=== PATIENT | male | born 1945 | race Caucasian/White ===

== ENCOUNTER → 2016-06-23 09:41 | Outpatient (CLI) | payer MEDICARE, OTHER ==
[2015-04-14 11:44] VITALS: BMI 28.4
[~2016-06-23 09:41] MED LIST: ACETAMINOPHEN325 MG PO; ASPIRIN 81 MG E81 MG PO; BETAPACE 80 MG80 MG PO; BRILINTA90 MG PO; CARAFATE1 G/10 ML PO; CIPRO500 MG PO; FLAGYL500 MG PO; LOSARTAN POTASS25 MG PO; MACROBID100 MG PO; NORCO 7.5-3251 EACH PO; NORMODYNE / TR300 MG PO; NORVASC10 MG PO; PLAVIX75 MG PO; PROBIOTIC1 EAC1 PO; PROTONIX40 MG PO; XARELTO20 MG PO
[2016-06-23 10:47] LABS: CREATININE - SERUM 2.1 mg/dL (0.6-1.3)
== END | disposition home or self-care (01) ==
LOC: D.CT 09:41
PROVIDERS: Internal Medicine Gastroenterology
DX: R10.9 Unspecified abdominal pain (principal)

== ENCOUNTER 2016-06-26 07:03 | Outpatient (CLI) | payer MEDICARE, OTHER ==
[~2016-06-26] VITALS: Ht 185.4 cm; Wt 93.6 kg
[2016-06-26 01:49] VITALS: BP 165/82
[~2016-06-26 07:03] MED LIST changes: -FLAGYL500 MG PO; -LOSARTAN POTASS25 MG PO; -MACROBID100 MG PO; -NORMODYNE / TR300 MG PO; -PROBIOTIC1 EAC1 PO
--- NOTE | 2016-06-26 07:30 | NUR ---
RECIEVED PT DURING WALKING ROUNDS. PT RESTING IN BED WITH NO COMPLAINTS OF PAIN AT THIS TIME. PT REQUESTED TO BE SUCTIONED AT THIS TIME. SPOKE TO PT ABOUT THE NEED TO NOT IRRITATE HER TRACH ANYMORE AND THAT WE WOULD SUCTION WHEN NECESSARY. ASSESSMENT DONE PER FLOWSHEET. BED IN LOW POSITION AND CALL LIGHT WITHIN REACH. WILL CONTINUE TO MONITOR.
[2016-06-26 07:34] LABS: BASOPHILS 0.6 % (0.0-2.0); EOSINOPHILS 2.9 % (0-7); HEMATOCRIT 46.2 % (42.0-54.0); HEMOGLOBIN 14.8 g/dL (13.5-17.5); IMMATURE GRANULOCYTES 0.1 % (0-5); MCH 28.2 pg (26.0-34.0); MEAN PLATELET VOLUME 10.2 fL (7.4-10.4); MONOCYTES 6.5 % (2-11); NEUTROPHILS 72.9 % (40-80); PLATELET COUNT 232 10x3/uL (130-400); RBC 5.25 10x6/uL (4.20-6.10); RDW 14.1 % (11.5-14.5); WBC 8.6 10x3/uL (4.8-10.8)
[2016-06-26 08:03] LABS: ALBUMIN 3.6 g/dL (3.4-5.0); ANION GAP 13.7 mmol/L (8-16); BILIRUBIN - TOTAL 0.3 mg/dL (0.2-1.3); CALCIUM 9.5 mg/dL (8.5-10.1); CARBON DIOXIDE 24.6 mmol/L (21.0-32.0); POTASSIUM - SERUM 5.3 mmol/L (3.5-5.1); PROTEIN - SERUM 7.1 g/dL (6.4-8.2)
[2016-06-26 08:25] LABS: APPEARANCE CLEAR (CLEAR); COLOR ORANGE (YELLOW)
[2016-06-26 08:26] LABS: WHITE CELLS - URINE 0-5 /hpf (0-5)
[2016-06-26 08:27] LABS: RED CELLS - URINE OCC /hpf (0-5)
[2016-06-26 08:28] LABS: BACTERIA FEW /hpf (NONE SEEN)
--- NOTE | 2016-06-26 09:50 | NUR ---
ASSISTED PT TO THE BEDSIDE COMMODE AT THIS TIME. AFTER FINISHING I HELPED PT INTO THE CHAIR. PT TOLERATED WELL. BED IN LOW POSITION AND CALL LIGHT WITHIN REACH. WILL CONTINUE TO [facility].
--- NOTE | 2016-06-26 12:25 | NUR ---
Patient Name: GUS CARRANZA Admission Status: ER Accout number: [id number] Admission Date: 06-26-2016 : 1945 Admission Diagnosis: Diverticulitis w/ failed OP Attending: SANG Current LOS: 1 Anticipated DC Date: 06-29-2016 Planned Disposition: Home Independently with Primary Insurance: MEDICARE A & B Discharge Planning Comments: Cm met with patient to complete initial discharge planning assessment. Patient gave consent to complete assessment. Patient reports he lives home with his independently. He does not use assistive devices for ambulation nor does he use community resources. Patient plans to return to home at discharge and denied discharge needs. CM will continue to follow and assist with dc plan/needs. Gold Wheel Blocker And Polisher: Suzie Ochoa RN, [facility] [place] [phone] Is the patient Alert and Oriented? Yes * How many steps to enter\exit or inside your home? Three * PCP Dr. Nguyen * Pharmacy [facility] [address] * Preadmission Environment Home with Family * ADLs Independent * Equipment None * List name and contact numbers for known caregivers / representatives who currently or will assist patient after discharge: Chloe Carranza - [phone] * Community resources currently utilized None * Additional services required to return to the preadmission environment? No * Can the patient safely return to the preadmission environment? Yes * Has this patient been hospitalized within the prior 30 days at any hospital? No
[2016-06-26] MEDS ORDERED: FLAGYL500 MG PO (12:28)
[2016-06-26] MEDS ORDERED: MACROBID100 MG PO (12:30)
[2016-06-26] MEDS ORDERED: NORMODYNE / TR300 MG PO (12:30)
[2016-06-26] MEDS ORDERED: CIPRO500 MG PO (12:31)
[2016-06-26] MEDS ORDERED: LOSARTAN POTASS25 MG PO (12:32)
[2016-06-26] MEDS ORDERED: PROBIOTIC1 EAC1 PO (12:34)
--- NOTE | 2016-06-26 12:45 | NUR ---
RECIEVED PT TO FLOOR FROM ER AT THIS TIME. REPORT RECIEVED FROM SARAH HUTCHISON. LEVAQUIN AND FLUIDS HANGING AT THIS TIME. HISTORY OBTAINED. PT RESTING IN BED WITH SPOUSE AT BEDSIDE. ORIENTED TO ROOM. BED IN LOW POSITION AND CALL LIGHT WITHIN REACH. WILL CONTINUE TO MONITOR.
[2016-06-26 13:10] VITALS: BP 162/79; Ht 185.4 cm; Wt 93.6 kg
[2016-06-26 19:05] VITALS: BP 174/83
--- NOTE | 2016-06-26 19:45 | NUR ---
PT AMBULATING TO BATHROOM,DENIES ANY NEEDS AT THIS TIME. FAMILY AT BEDSIDE. CALL LIGHT IN REACH, ASSESSMENT PER FLOWSHEET.
[2016-06-26 20:00] VITALS: BP 190/89
--- NOTE | 2016-06-26 22:58 | NUR ---
PT RESTING QUIETLY, BREATHING EVEN AND UNLABORED ON ROOM AIR, NO S/S OF DISTRESS NOTED. BED IN LOWEST POSITION, CALL LIGHT IN REACH. WILL CONTINUE TO MONITOR.
--- NOTE | 2016-06-27 03:23 | NUR ---
PT RESTING QUIETLY, NO S/S OF DISTRESS NOTED, BED IN LOWEST POSITION, RETAIL ADVERTISING ACCOUNT EXECUTIVE RESUME CARE
[2016-06-27 05:27] LABS: BASOPHILS 0.4 % (0.0-2.0); EOSINOPHILS 2.2 % (0-7); HEMATOCRIT 42.4 % (42.0-54.0); HEMOGLOBIN 13.5 g/dL (13.5-17.5); IMMATURE GRANULOCYTES 0.3 % (0-5); LYMPHOCYTES 23.6 % (15-50); MCH 27.9 pg (26.0-34.0); MCHC 31.8 g/dL (31.0-37.0); MCV 87.6 fL (80.0-100.0); MEAN PLATELET VOLUME 10.2 fL (7.4-10.4); MONOCYTES 7.8 % (2-11); NEUTROPHILS 65.7 % (40-80); PLATELET COUNT 219 10x3/uL (130-400); RBC 4.84 10x6/uL (4.20-6.10); RDW 14.2 % (11.5-14.5); WBC 7.3 10x3/uL (4.8-10.8)
[2016-06-27 06:14] LABS: ANION GAP 13.1 mmol/L (8-16); CALCIUM 8.8 mg/dL (8.5-10.1); CARBON DIOXIDE 23.4 mmol/L (21.0-32.0); CREATININE - SERUM 1.7 mg/dL (0.6-1.3)
[2016-06-27 06:15] LABS: POTASSIUM - SERUM 4.5 mmol/L (3.5-5.1)
--- NOTE | 2016-06-27 07:20 | NUR ---
SLEEPING AT THIS TIME. RESPIRATIONS EVEN AND NON LABORED. CALL LIGHT IN REACH, WILL CONTINUE WITH PLAN OF CARE. SRX2 WITH BED IN LOWEST POSITION AND WHEELS LOCKED.
[2016-06-27 08:14] VITALS: BP 158/74
--- NOTE | 2016-06-27 09:10 | NUR ---
ASSESSMENT PERFORMED PER FLOWSHEET. PT'S ADMINISTERED PT'S HOME BP MEDICATION. EXPLAINED THAT ALL MEDICATIONS SHOULD BE REVIEWED AND CONTINUED BY PHYSICIAN. PT AND HIS SPOUSE VERBALIZE UNDERSTANDING. DENIES NEEDS AT PRESENT TIME. CALL LIGHT IN REACH, WILL CONTINUE WITH PLAN OF CARE.
--- NOTE | 2016-06-27 12:15 | NUR ---
DISCHARGE INSTRUCTIONS REVIEWED WITH PT AND IV TO LEFT AC D/C WITH CATH TIP INTACT. DENIES QUESTIONS OR CONCERNS. WILL DISCHARGE HOME WITH HIS .
[2016-06-27 12:31] VITALS: BP 186/87
== END 2016-06-27 13:00 | disposition home or self-care (01) ==
LOC: D.ER 07:03 → D.OPS 07:03 → EDSTATUS 11:33 → D.MS 11:34 → D.ER 11:37 → D.MS 11:37 → D.OPS 06-27 13:00 → D.MS 06-27 13:00
PROVIDERS: Emergency Medicine
DX: K57.92 Diverticulitis of intestine, part unspecified, without perforation or abscess without bleeding (principal); N28.9 Disorder of kidney and ureter, unspecified; E87.5 Hyperkalemia; I48.91 Unspecified atrial fibrillation; I10 Essential (primary) hypertension; I25.10 Atherosclerotic heart disease of native coronary artery without angina pectoris

== ENCOUNTER 2016-07-12 07:15 | Day surgery (SDC) | payer MEDICARE, OTHER ==
[~2016-07-12] VITALS: Ht 185.4 cm; Wt 91.8 kg
[~2016-07-12 07:15] MED LIST changes: +FLAGYL500 MG PO; +LOSARTAN POTASS25 MG PO; +MACROBID100 MG PO; +NORMODYNE / TR300 MG PO; +PROBIOTIC1 EAC1 PO
[2016-07-12 07:54] LABS: BASOPHILS 1.4 % (0.0-2.0); HEMATOCRIT 46.1 % (42.0-54.0); HEMOGLOBIN 14.8 g/dL (13.5-17.5); IMMATURE GRANULOCYTES 0.2 % (0-5); LYMPHOCYTES 26.4 % (15-50); MCH 28.1 pg (26.0-34.0); MCHC 32.1 g/dL (31.0-37.0); MCV 87.6 fL (80.0-100.0); MEAN PLATELET VOLUME 10.1 fL (7.4-10.4); MONOCYTES 8.6 % (2-11); NEUTROPHILS 59.4 % (40-80); PLATELET COUNT 221 10x3/uL (130-400); RBC 5.26 10x6/uL (4.20-6.10); RDW 14.8 % (11.5-14.5); WBC 6.3 10x3/uL (4.8-10.8)
[2016-07-12 08:02] LABS: ANION GAP 12.8 mmol/L (8-16); CALCIUM 8.9 mg/dL (8.5-10.1); CARBON DIOXIDE 24.8 mmol/L (21.0-32.0); CREATININE - SERUM 1.9 mg/dL (0.6-1.3); POTASSIUM - SERUM 4.6 mmol/L (3.5-5.1)
[2016-07-12 08:12] VITALS: BP 147/85; Ht 185.4 cm; Wt 91.8 kg
--- NOTE | 2016-07-12 10:15 | NUR ---
DISCHARGED HOME VIA WHEELCHAIR TO PRIVATE VEHICLE WITH SPOUSE
--- NOTE | 2016-07-20 12:04 | OP ---
PATIENT NAME: GUS TERAN MEDICAL RECORD: [id number] :[birth year] [facility] ADMISSION DATE: SURGEON: JENNIFER DE SANTIAGO DO DATE OF OPERATION: 07/12/2016 PROCEDURE: EGD with biopsies. INSTRUMENT: Olympus video gastroscope. MEDICATIONS: Propofol 210 mg and lidocaine 100 mg IV per anesthesia. INDICATIONS FOR PROCEDURE: History of Araujo's esophagus and heartburn. FINDINGS: Informed consent was given. The patient was made comfortable with the above medications. After reaching an adequate level of sedation by slow IV push. The patient was placed on his left side. The endoscope was then advanced under direct visualization through the mouth to the second portion of the duodenum. The upper, middle and distal thirds of the esophagus appeared normal. At the GE junction, there was evidence of Araujo esophagus from approximately 37-39 cm from the incisors. 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 Biopsies were taken of the Araujo's site and sent for histology. Scope was then advanced down to the stomach. There was evidence of a hiatal hernia involving the cardia from both the proximal esophageal side and the distal stomach side. This was a sliding hiatal hernia type. There were a few benign fundic gland polyps involving the fundus and stomach body. Scope was advanced down to the antrum and prepyloric region where the mucosa appeared normal. It was then advanced into the duodenum where there was some evidence of duodenitis consistent with erythema and congestion of the bulb into the second portion. This has been biopsied before and was normal. No Biopsies were taken of the duodenum on this examination. There were random biopsies taken with cold forceps in the stomach and biopsies with cold forceps of the Araujo's site. The scope was withdrawn from the patient. The patient tolerated the procedure well and there were no complications. ESTIMATED BLOOD LOSS: Less than 5 cc. IMPRESSIONS: 1. 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 2. Sliding hiatal hernia, medium size. 3. Benign fundic gland gastric polyps. 4. Duodenitis. PLAN AND RECOMMENDATIONS: 1. Await results of biopsy specimens. 2. Recommend continuing Protonix at 40 mg daily for now while stopping the Carafate suspension. 3. Return to the GI clinic as needed. 4. If there is no evidence of dysplasia on the biopsy results we will plan for a repeat surveillance upper endoscopy in 3 years' time regarding the Araujo's. TRANSINT:[id number] Voice Confirmation ID: [id number] DOCUMENT ID: [id number] OPERATIVE REPORT [id number] GUS TERAN NATHAN A DO at 1204 CC: [id number] DICTATION DATE: 07/12/16915 BROOD HATCHERY MANAGER: 07/12/16 1148 [facility] 07/12/[address] [address]
== END 2016-07-12 10:15 | disposition home or self-care (01) ==
LOC: D.OPS 07:15
PROVIDERS: Anesthesiology
DX: K22.70 Barrett's esophagus without dysplasia (principal); K29.50 Unspecified chronic gastritis without bleeding; K44.9 Diaphragmatic hernia without obstruction or gangrene; K31.7 Polyp of stomach and duodenum

== ENCOUNTER 2016-10-13 10:30 | Outpatient (CLI) | payer MEDICARE, OTHER ==
[~2016-10-13] VITALS: Ht 185.4 cm; Wt 94.1 kg
--- NOTE | ~2016-10-13 | HEMODYNAMI ---
PATIENT:GUS TERAN MEDICAL RECORD: [id number] : [birth year] LOCATION:D.[facility] ADMISSION DATE: 10/13/16 Generatedon:10/13/201613:16 Patient name: GUS TERAN Patient #: [id number] SSN: : 1945 Date of study: 10/13/2016 Page: Of Hemodynamic Procedure Report Patient Data Patient Demographics Procedure consent was obtained First Name: GUS Gender: Male Last Name: PARUL : 1945 Middle Initial: D Age: 71 year(s) Patient #: [id number] Race: Additional ID: [id number] Contact details Address: [address] [place] [address] lane State: [place] City: [place] Zip code: [address] Past Medical History Allergies: No known allergies Admission Admission Data Admission Date: 10/13/2016 Admission Time: 10:30 Lab Results Lab Result Date: 10/13/2016 Lab Result Time: 0:00 Biochemistry Name Units Result Min Max BUN mg/dl 28 --(----)-* 7 18 Creatinine mg/dl 1.7 --(----)-* 0.6 1.3 CBC Name Units Result Min Max Hemoglobin g/dl 14.6 --(-*--)-- 13.5 17.5 Procedure Procedure Types Cath Procedure Diagnostic Procedure [facility] w/Coronaries PCI Procedure Coronary Stent Initial Miscellaneous Procedures Moderate Sedation up to 30 minutes Procedure Description Procedure Date Procedure Date: 10/13/2016 Procedure Start Time: 12:52 Procedure End Time: 13:10 Procedure Staff Name Function Pipo Bearden MD Performing Physician Jaclyn Bishop RN Nurse Luis Carlos Gay RT Monitor Jasvir Obrien RT Scrub Procedure Data Cath Procedure Fluoroscopy Diagnostic fluoroscopy Total fluoroscopy Time: 5.1 time: 5.1 min min Diagnostic fluoroscopy Total fluoroscopy dose: dose: 1065 mGy 1065 mGy Contrast Material Contrast Material Type Amount (ml) Isovue 300 137 Entry Location Entry Primary Successful Side Size Upsize Upsize Entry Closure Lassiter ccessful Closure Location (Fr) 1 (Fr) 2 (Fr) Remarks Device Remarks Radial Right 6 Fr Mechanical artery Short Compression Diagnostic catheters Device Type Used For End Catheter Placement Terumo 5Fr Ino 110cm LV Angiography catheter Procedure Complications No complications Procedure Medications Medication Administration Route Dosage Oxygen NRB 2 l/min Heparin Flush Bag added to field 2 bags (1000units/500ml NS) Lidocaine 2% added to field 20 Radial Cocktail added to field 1 syringe (Verapomil 2mg/Nitro 400mcg/Heparin 1500units) Versed I.V. 1 mg Fentanyl I.V. 50 mcg Radial Cocktail I.A. 1 syringe (Verapomil 2mg/Nitro 400mcg/Heparin 1500units) Versed I.V. 1 mg Fentanyl I.V. 50 mcg Versed I.V. 1 mg Fentanyl I.V. 50 mcg Heparin Bolus I.V. 9500 units Versed I.V. 0.5 mg Plavix P.O. 600 mg Hemodynamics Rest HGB: 14.6 (g/dl) Heart Rate: 80 (bpm) Pressure Samples Time Site Value (mmHg) Purpose Heart Use Rate(bpm) 12:55 LV 125/-7,-1 EDP 58 12:56 AO 120/71(92) Pullback 63 12:56 LV 120/-2,4 Pullback 63 Gradients Valve Time Site 1 Site 2 Mean SEP/DFP Peak To Heart Use (mmHg) (sec/min) Peak Rate (mmHg) (bpm) Aortic 12:56 LV AO 9 17 0 63 120/-2,4 120/71(92) Calculations Valve P-P Mean Valve Index Valve Source Name Gradient Area Flow (cm2) Aortic 0 9 0 9 Snapshots Pre Cath Intra NCS Post Cath Vital Signs Time Heart Resp SPO2 NIBP (mmHg) Rhythm Pain Sedation Rate (ipm) (%) Status Level (bpm) 12:39:16 66 16 98 Measuring NSR 0 (11) 10(A) , No pain 12:39:28 63 18 98 151/99(121) NSR 0 (11) 10(A) , No pain 12:44:27 62 16 99 Measuring NSR 0 (11) 10(A) , No pain 12:44:38 64 18 99 164/94(130) NSR 0 (11) 10(A) , No pain 12:48:52 61 16 98 148/96(129) NSR 0 (11) 10(A) , No pain 12:53:08 60 15 95 158/87(117) NSR 0 (11) 10(A) , No pain 12:57:28 61 16 95 130/72(95) NSR 0 (11) 9(A) , No pain 13:01:42 64 14 96 137/77(121) NSR 0 (11) 9(A) , No pain 13:05:56 58 14 98 128/82(110) NSR 0 (11) 9(A) , No pain 13:10:08 69 15 97 141/84(106) NSR 0 (11) 10(A) , No pain Medications Time Medication Route Dose Verified Delivered Reason Note s Effectiveness by by 12:38:55 Oxygen NRB 2 l/min Pipo Jaclyn Per physician Raul Bishop RN 12:39:03 Heparin Flush added 2 bags Pipo Pipo used for Bag to Raul Bearden MD procedure (1000units/500ml field NS) 12:39:11 Lidocaine 2% added 20ml Pipo Pipo used for to vial Raul Beraden MD procedure field 12:39:17 Radial Cocktail added 1 Pipo Pipo used for (Verapomil to syringe Raul Bearden MD procedure 2mg/Nitro field 400mcg/Heparin 1500units) 12:48:45 Versed I.V. 1 mg Pipo Jaclyn for sedation Raul Bishop RN 12:48:50 Fentanyl I.V. 50 mcg Pipo Jaclyn for sedation Raul Bishop RN 12:52:07 Versed I.V. 1 mg Pipo Jaclyn for sedation Raul Bishop RN 12:52:13 Fentanyl I.V. 50 mcg Pipo Jaclyn for sedation Raul Bishop RN 12:53:37 Radial Cocktail I.A. 1 Pipo Pipo for (Verapomil syringe Raul Bearden MD vasodilation 2mg/Nitro 400mcg/Heparin 1500units) 12:54:30 Versed I.V. 1 mg Pipo Jaclyn for sedation Raul Bishop RN 12:54:34 Fentanyl I.V. 50 mcg Pipo Jaclyn for sedation Raul Bishop RN 12:56:37 Versed I.V. 0.5 mg Pipo Jaclyn for sedation Raul Bishop RN 13:04:00 Heparin Bolus I.V. 9500 Pipo Jaclyn for dose units Raul Bishop RN anticoagulation verified with dr bearden 13:11:55 Plavix P.O. 600 mg Pipo Jaclyn for Raul Bishop RN antiplatelet therapy Procedure Log Time Note 12:21:05 Luis Carlos Gay RT(R) sent for patient. Start room use. 12:21:06 Time tracking: Regular hours 12:21:11 Plan of Care:Hemodynamics will remain stable., Cardiac rhythm will remain stable., Comfort level will be maintained., Respiratory function will remain adequate., Patient/ family verbilizes understanding of procedure., Procedure tolerated without complication., Recovers from procedure without complications.. 12:28:15 Patient received from Pre/Post Procedure Room to [facility] 2 Alert and oriented. Tansferred to table in Supine position. 12:28:16 Warm blankets applied, and bruce hugger turned on for patient comfort. 12:28:17 Correct patient and procedure confirmed by team. 12:28:18 Signed procedure consent form obtained from patient. 12:28:18 ECG and BP/O2 sat monitors applied to patient. 12:37:27 Vital chart was started 12:38:55 Oxygen 2 l/min NRB was administered by Jaclyn Bishop RN; Per physician; 12:39:03 Heparin Flush Bag (1000units/500ml NS) 2 bags added to field was administered by Pipo Bearden MD; used for procedure; 12:39:11 Lidocaine 2% 20ml vial added to field was administered by Pipo Bearden MD; used for procedure; 12:39:17 Radial Cocktail (Verapomil 2mg/Nitro 400mcg/Heparin 1500units) 1 syringe added to field was administered by Pipo Bearden MD; used for procedure; 12:42:12 Baseline sample Acquired. 12:42:15 Rhythm: sinus rhythm 12:42:17 Full Disclosure recording started 12:43:04 H&P Date Dictated: 10/13/2016 Within 30 days and on chart., H&P Addendum completed by physician on day of procedure. (MUST COMPLETE FOR ALL OUTPATIENTS). 12:44:53 Pre-procedure instructions explained to patient. 12:44:54 Pre-op teaching completed and patient verbalized understanding. 12:44:58 Family in patients room. 12:45:03 Patient NPO since Midnight. 12:45:08 Patient allergic to No known allergies 12:45:11 Is the patient allergic to Iodine/contrast media? No. 12:45:13 Is patient on blood thinner?No 12:45:16 ACC The patient was administered the following blood thiners within the last 24 hours: ACCAspirin 12:45:18 Patient diabetic? No. 12:45:19 ----Pre-sedation anethsthesia assessment.---- 12:45:21 Previous problem with sedation/anesthesia? No ? 12:45:23 Snore? Yes 12:45:25 Sleep apnea? Unknown 12:45:27 Deviated septum? No 12:45:28 Opens mouth fully? Yes 12:45:29 Sticks out tongue? Yes 12:45:31 Airway obstruction? No ? 12:45:34 Dentures? No ? 12:45:37 Pre procedure: right dorsailis pedis pulse 1+ Palpable, but thready & weak; easily obliterated 12:45:41 Modified Justen's test Ulnar > 7 seconds. 12:45:43 Patient pain scale 0/10 ?. 12:45:56 IV patent on arrival in left hand with 0.9% NaCl at 10ml/hr. 12:48:14 Lab Result : Creatinine 1.7 mg/dl 12:48:14 Lab Result : BUN 28 mg/dl 12:48:14 Lab Result : Hemoglobin 14.6 g/dl 12:48:16 Lab results completed and on chart. 12:48:19 Right Radial & Right Groin area was prepped with chlora-prep and draped in sterile fashion 12:48:20 Alarms reviewed by R. N. 12:48:21 Sharps counted by scrub and verified by R.N. 12:48:22 --------ALL STOP TIME OUT------ 12:48:22 Final Timeout: patient, procedure, and site verified with staff and physician. All members of the team are in agreement. 12:48:26 Right Radial & Right Groin site verified by team. 12:48:28 Physical assessment completed. ASA score P 2 - A patient with mild systemic disease as per Pipo Bearden MD. 12:48:31 Sedation plan: IV Moderate Sedation Versed, Fentanyl 12:48:37 Use device set Radial Dx 12:48:38 Acist Syringe opened to sterile field. 12:48:38 Medline Cath Pack opened to sterile field. 12:48:39 Bag Decanter opened to sterile field. 12:48:39 Terumo 6Fr Slender Glidesheath opened to sterile field. 12:48:39 St Meng 260cm J .035 wire opened to sterile field. 12:48:40 Acist Hand Control opened to sterile field. 12:48:40 Acist Manifold opened to sterile field. 12:48:41 Tegaderm 4 x 4 opened to sterile field. 12:48:41 MBrace Wrist Support opened to sterile field. 12:48:45 Versed 1 mg I.V. was administered by Jaclyn Bishop RN; for sedation; 12:48:50 Fentanyl 50 mcg I.V. was administered by Jaclyn Bishop RN; for sedation; 12:52:07 Versed 1 mg I.V. was administered by Jaclyn Bishop RN; for sedation; 12:52:13 Fentanyl 50 mcg I.V. was administered by Jaclyn Bishop RN; for sedation; 12:52:24 Procedure started. 12:52:28 Local anesthetic to right radial artery with Lidocaine 2% by Pipo Bearden MD.INITIAL ACCESS ONLY 12:52:49 A 6 Fr Short sheath was inserted into the Right Radial artery 12:53:25 A Terumo 5Fr Ino 110cm catheter was advanced over the wire and used for LV Angiography. 12:53:29 Zero performed for pressure channel P1 12:53:37 Radial Cocktail (Verapomil 2mg/Nitro 400mcg/Heparin 1500units) 1 syringe I.A. was administered by Pipo Bearden MD; for vasodilation; 12:53:57 LV angiography performed. 12:54:00 LV gram done using BEAL 12:54:01 LV hemodynamics recorded. 12:54:03 Injector settings: Ml/sec: 7, Volume: 15, 12:54:30 Versed 1 mg I.V. was administered by Jaclyn Bishop RN; for sedation; 12:54:34 Fentanyl 50 mcg I.V. was administered by Jaclyn Bishop RN; for sedation; 12:55:59 EF : 55 % 12:56:37 Versed 0.5 mg I.V. was administered by Jaclyn Bishop RN; for sedation; 12:56:44 LCA angiography performed. 12:58:38 RCA angiography performed. 13:00:22 Catheter removed. 13:02:37 Goal Zero BasixCompak Inflation Kit opened to sterile field. 13:02:37 Franco BMW [place] 2 J-tip 300cm 0.014 guide wir opened to sterile field. 13:02:37 High Pressure Extension Tubing (Raul) opened to sterile field. 13:02:38 Cordis 6FR XBLAD 3.5 guide catheter opened to sterile field. 13:02:49 ACC PCI Site: mLAD has 70% stenosis. 13:02:51 ACC Pre-intervention ELIZABETH Flow is 3. 13:02:57 6 Fr XBLAD 3.5 guide catheter was inserted over the wire 13:04:00 Heparin Bolus 9500 units I.V. was administered by Jaclyn Bishop RN; for anticoagulation; dose verified with dr bearden 13:04:57 BMW 2 J wire advanced. 13:06:39 Procedure type changed to Cath procedure, Diagnostic procedure, LHC, LHC w/Coronaries, PCI procedure, Coronary Stent Initial, Miscellaneous Procedures, Moderate Sedation up to 30 minutes 13:07:16 Inflation Number: 1 A Medtronic Integrity 3.0 X 18 stent was prepped and advanced across the Mid LAD. The stent was deployed at 16 VIVI for 0:18 (min:sec). 13:07:41 Stent catheter was removed intact over wire. 13:07:42 Wire removed. 13:07:42 Guide catheter removed. 13:08:11 Sheath removed intact; hemostasis achieved with Mechanical Compression to the Right Radial artery. 13:08:13 Procedure ended.(Physican Out) 13:08:34 Contrast amount:Isovue 300 137ml. 13:08:38 Fluoroscopy time 05.10 minutes. 13:08:43 Fluoroscopy dose: 1065 mGy 13:08:43 Flurop Dose total: 1065 13:08:44 Sharps counted by scrub and verified by R.N. 13:09:42 TR band inflated with 10cc of air. 13:09:44 Insertion/operative site no bleeding no hematoma. 13:09:50 Post right radial artery:stable 13:09:51 Post Procedure Pulses reassessed and unchanged 13:09:56 Post procedure rhythm: sinus rhythm 13:09:58 Post procedure instruction explained to patient.Patient verbalizes understanding. 13:10:18 Terumo TR Band Standard opened to sterile field. 13:10:32 Procedure and supply charges have been captured, reviewed, submitted and are correct. 13:10:37 Procedure Complication : No complications 13:10:39 Vital chart was stopped 13:10:40 See physician's report for complete and final results. 13:10:46 Report given to Pre/Post Procedure Room. 13:10:49 Patient transfered to Pre/Post Procedure Room with Stretcher. 13:10:50 Procedure ended. 13:10:50 Full Disclosure recording stopped 13:10:58 ACC-PCI Only Patient was given prescriptions, or instructed by Pipo Bearden MD to start/continue the following medications upon discharge: Plavix 13:10:59 End room use (Document Last) 13:11:55 Plavix 600 mg P.O. was administered by Jaclyn Bishop RN; for antiplatelet therapy; Intervention Summary Intervention Notes Time ActionType Lesion and Equipment Action# Pressure Duration Attributes Used 13:07:16 Place stent Mid LAD Medtronic 1 16 00:18 Integrity 3.0 X 18 stent Device Usage Item Name Manufacture Quantity Catalog Hospital Part Current Minimal Lot# / Number Charge Number Stock Stock Serial# Code Acist Acist 1 68845 530324 166029 733227 20 Syringe Medical Systems Inc Medline Cardinal 1 [id number] 650143 12169 700340 5 Cath Pack Health Bag Microtek 1 621055 84774 022273 5 DecSumpto Medical Inc. Terumo 6Fr Terumo 1 [id number] 182555 763170 941062 [address] M[address] St Meng 1 388333 531135 839136 184548 30 260cm J .035 wire Acist Hand Acist 1 56490 713017 130589 593132 5 Control Medical Systems Inc Acist Acist 1 83235 847551 386106 853833 5 Manifold Medical Systems Inc Tegaderm 4 3M 1 1626W 777069 343011 592091 5 x 4 MBrace Advanced 1 140-0250-00 166758 25566 321908 5 Wrist Vascular Support Dynamics Terumo 5Fr Terumo 1 40-3968 899489 125546 489119 5 Ino 110cm catheter Merit Merit 1 [id number] 899015 463834 689593 15 BasixCompak Medical Inflation Kit Franco BMW Franco 1 [id number] 107170 013531 022719 5 [place] 2 Vascular J-tip 300cm 0.014 guide wir High Merit 1 [id number] 247801 80186 220905 10 Pressure Medical Extension Tubing (Bearden) Cordis 6FR Cardinal 1 [id number] 594169 823974 851741 10 XBLAD 3.5 Health guide catheter Medtronic Medtronic 1 [id number] 951482 608594 8 [id number] Integrity 3.0 X 18 stent Terumo TR Terumo 1 [id number] 626834 556806 971714 40 Band Standard Signature Audit [place] Stage Time Signature Unsigned Intra-Procedure 10/13/2016 Luis Carlos Gay 1:16:45 PM RT(R) Signatures Monitor : Luis Carlos Gay RT Signature : Date : Time : [place] [id number] [facility] [place] [address]
--- NOTE | ~2016-10-13 | OP ---
PATIENT NAME: GUS TERAN MEDICAL RECORD: [id number] :45 LOCATION:D.CAT ADMISSION DATE: SURGEON: LONA ALBERT M.D. DATE OF OPERATION: 10/13/2016 REFERRING PHYSICIAN: Dr. Nguyen. PROCEDURES PERFORMED: 1. Selective coronary angiography. 2. Left heart catheterization with ventriculogram. 3. PTCA and stent placed in LAD. INDICATION: A 71-year-old gentleman with coronary artery disease presents with recurrent angina. EQUIPMENT USED: Diagnostic 5-Djiboutian Ino catheter. INTERVENTION: A 6-Djiboutian XB LAD guide, BMW guidewire, 3.0 x 18 mm Integrity stent. TECHNIQUE: A 6-Djiboutian sheath was inserted in retrograde fashion in the right radial artery. Next, selective coronary angiography was performed in standard 5-Djiboutian Ino catheter. Left heart catheterization performed using a Ino catheter as well. CORONARY ANATOMY: 1. Left main: Left main trunk is moderate in caliber. It gives rise to the LAD and circumflex. There is no obstruction. 2. LAD: This is a large caliber vessel extending to the apex. The proximal segment demonstrates an irregular 70-80% stenosis. 3. Circumflex: This vessel is moderate in caliber. The proximal vessel have been stented. The stent is widely patent. There is no evidence of restenosis. 4. Right coronary artery: This vessel is moderate in caliber and dominant. There is diffuse in-stent restenosis noted throughout the length of the stent. It does not appear to be worse than 40%. The distal vessel is of good caliber and has no obstruction. 5. Left ventricle: Left ventricle is normal in size and function. No wall motion abnormalities are seen. Its ejection fraction is 60%. DESCRIPTION OF INTERVENTION: A 100 units per kilogram of heparin was infused. A 6-Djiboutian XB LAD guide was advanced and engaged in the left main coronary artery. Next, a BMW guide wire was placed distal LAD. A 3.0 x 18 mm Integrity stent was placed across the stenosis and deployed at 16 atmospheres. Injection reveals stent to be widely patent with 0% residual stenosis. At this point, the wire and guide were removed. IMPRESSION: Successful percutaneous transluminal coronary angioplasty and stenting to the LAD with 0% residual stenosis. PLAN: We will see him back in clinic in approximately 1-2 weeks. He continues having angina. We will consider intravascular ultrasound of the right coronary artery at that point. TRANSINT:[id number] Voice Confirmation ID: [id number] DOCUMENT ID: [id number] OPERATIVE REPORT [id number] GUS TERAN TIMOTHY E M.D. CC: [id number] DICTATION DATE: 10/13/16 1314 COMMERCIAL ASSISTANT: 10/13/162020 DEP CLI 10/13/16 [facility] [address] [id number]
[2016-10-13 11:18] LABS: BASOPHILS 0.6 % (0-2); EOSINOPHILS 3.3 % (0-7); HEMATOCRIT 44.2 % (42.0-54.0); HEMOGLOBIN 14.6 g/dL (13.5-17.5); IMMATURE GRANULOCYTES 0.5 % (0-5); LYMPHOCYTES 21.8 % (15-50); MCH 28.6 pg (26.0-34.0); MCV 86.7 fL (80.0-100.0); MEAN PLATELET VOLUME 10.4 fL (7.4-10.4); MONOCYTES 8.6 % (2-11); NEUTROPHILS 65.2 % (40-80); PLATELET COUNT 232 10x3/uL (130-400); RDW 14.5 % (11.5-14.5); WBC 8.1 10x3/uL (4.8-10.8)
[2016-10-13] MEDS ORDERED: CADUET 5 MG-101 EACH PO (11:20)
[2016-10-13 11:28] VITALS: BP 157/85; Ht 185.4 cm; Wt 94.1 kg
[2016-10-13 11:37] LABS: CALCIUM 9.1 mg/dL (8.5-10.1); CARBON DIOXIDE 22.2 mmol/L (21.0-32.0); CREATININE - SERUM 1.7 mg/dL (0.6-1.3)
[2016-10-13 11:40] LABS: ANION GAP 13.8 mmol/L (8-16)
[2016-10-13] MEDS ORDERED: PLAVIX75 MG PO (13:35)
--- NOTE | 2016-10-13 13:45 | NUR ---
TR BAND TO RIGHT WRIST- CDI, NO BLEEDING AT SITE
--- NOTE | 2016-10-13 15:15 | NUR ---
RIGHT WRIST WITH TR BAND INTACT, NO BLEEDING
--- NOTE | 2016-10-13 17:20 | NUR ---
IV D'C WITH CATH TIP INTACT, WRITTEN AND VERBAL INSTRUCTIONS GIVEN TO PT AND . VERBAL UNDERSTANDING NOTED. D'C HOME WITH
== END 2016-10-13 17:35 | disposition home or self-care (01) ==
LOC: D.CATH 10:30
PROVIDERS: Internal Medicine Cardiovascular Disease
DX: I25.119 Atherosclerotic heart disease of native coronary artery with unspecified angina pectoris (principal); Z01.812 Encounter for preprocedural laboratory examination

== ENCOUNTER 2016-11-09 10:29 | Outpatient (CLI) | payer MEDICARE, OTHER ==
[~2016-11-09] VITALS: Ht 182.9 cm; Wt 93.6 kg
[2016-11-09] VITALS: BP 144/84
--- NOTE | ~2016-11-09 | HEMODYNAMI ---
PATIENT:GUS TERAN MEDICAL RECORD: [id number] : 45 LOCATION:D[facility]AYAN ADMISSION DATE: 11/09/16 Generatedon:11/09/201614:00 Patient name: GUS TERAN Patient #: [id number] SSN: : 1945 Date of study: 11/09/2016 Page: Of Hemodynamic Procedure Report Patient Data Patient Demographics Procedure consent was obtained First Name: GUS Gender: Male Last Name: PARUL : 1945 Middle Initial: D Age: 71 year(s) Patient #: [id number] Race: Additional ID: [id number] Contact details Address: [address] [place] [address] lane State: [place] City: [place] Zip code: [address] Past Medical History Allergies: No known allergies Admission Admission Data Admission Date: 11/09/2016 Admission Time: 10:29 Procedure Procedure Types Cath Procedure Diagnostic Procedure PPM/ICD PPM Dual Implant Miscellaneous Procedures Moderate Sedation up to 45 minutes Procedure Description Procedure Date Procedure Date: 11/09/2016 Procedure Start Time: 13:06 Procedure Staff Name Function Hardeep Arriaga MD Performing Physician Luis Carlos Gay RT Scrub Bran Kemp RT Monitor Jaclyn Bishop RN Nurse Alphonso Potts MD Performing Physician Procedure Data Cath Procedure Fluoroscopy Diagnostic fluoroscopy Total fluoroscopy Time: 2.4 time: 2.4 min min Diagnostic fluoroscopy Total fluoroscopy dose: 82 dose: 82 mGy mGy Procedure Medications Medication Administration Route Dosage Ancef (1Gm/50ml NS) 1 g Ancef Irrigation Topical 1 g (1gm/500ml NS) Lidocaine 1% with added to field 20 ml Epi Bupivacaine 0.5% 10 ml Versed I.V. 1 mg Fentanyl I.V. 50 mcg Versed I.V. 0.5 mg Fentanyl I.V. 50 mcg Versed I.V. 0.5 mg Hemodynamics Rest Heart Rate: 64 (bpm) Snapshots Pre Cath Intra NCS Post Cath Vital Signs Time Heart Resp SPO2 NIBP (mmHg) Rhythm Pain Sedation Rate (ipm) (%) Status Level (bpm) 12:53:59 64 16 98 Measuring NSR 0 (11) 10(A) , No pain 12:58:03 64 18 98 178/104(150) NSR 0 (11) 10(A) , No pain 13:02:27 63 16 99 172/102(137) NSR 0 (11) 10(A) , No pain 13:06:58 64 16 99 169/108(138) NSR 0 (11) 10(A) , No pain 13:11:22 64 17 96 178/102(147) NSR 0 (11) 10(A) , No pain 13:15:56 71 14 96 172/83(124) NSR 0 (11) 10(A) , No pain 13:20:17 112 23 96 100/79(90) ST 0 (11) 10(A) , No pain 13:25:15 69 18 96 Measuring NSR 0 (11) 10(A) , No pain 13:25:24 69 15 97 163/75(130) NSR 0 (11) 10(A) , No pain 13:29:52 67 18 96 154/73(138) NSR 0 (11) 10(A) , No pain 13:34:12 63 16 96 162/92(136) NSR 0 (11) 10(A) , No pain 13:38:38 64 17 95 173/98(141) NSR 0 (11) 10(A) , No pain 13:42:59 70 15 96 163/100(137) NSR 0 (11) 10(A) , No pain 13:47:27 69 15 96 174/89(146) NSR 0 (11) 10(A) , No pain 13:51:57 69 9 96 170/92(136) NSR 0 (11) 10(A) , No pain 13:55:57 No Cuff NSR 0 (11) 10(A) , No pain 13:59:56 No Cuff NSR 0 (11) 10(A) , No pain Medications Time Medication Route Dose Verified Delivered Reason Notes Effectiv eness by by 12:52:23 Ancef 1 g January January Per (1Gm/50ml Rossy Rossy physician NS) RN RN 12:52:42 Ancef Topical 1 g January January used for Irrigation Rossy Rossy procedure (1gm/500ml RN RN NS) 12:52:58 Lidocaine added 20 ml January January used for 1% with Epi to Rossy Rossy procedure field SMITH RN 12:57:03 Bupivacaine ADDED 10 ml Hardeep Hardeep 0.5% TO Bart MandersonBairon CLEMENT MD, MD 13:07:17 Versed I.V. 1 mg Hardeep Jaclyn for Manderson Dario SMITH sedation 13:07:26 Fentanyl I.V. 50 Hardeep Jaclyn for mcg BartBairon Bishop RN sedation 13:10:17 Versed I.V. 0.5 Hardeep Jaclyn for mg BartBairon Bishop RN sedation 13:10:21 Fentanyl I.V. 50 Hardeep Jaclyn for mcg BartBairon Bishop RN sedation 13:12:19 Versed I.V. 0.5 Hardeep Jaclyn for mg Manderson Dario SMITH sedation Procedure Log Time Note 12:31:22 Luis Carlos DIAZ(R) sent for patient. Start room use. 12:35:51 Time tracking: Regular hours 12:35:56 Plan of Care:Hemodynamics will remain stable., Cardiac rhythm will remain stable., Comfort level will be maintained., Respiratory function will remain adequate., Patient/ family verbilizes understanding of procedure., Procedure tolerated without complication., Recovers from procedure without complications.. 12:36:04 Patient received from Pre/Post Procedure Room to [facility] 3 Alert and oriented. Tansferred to table in Supine position. 12:36:07 Warm blankets applied, and bruce hugger turned on for patient comfort. 12:36:08 Correct patient and procedure confirmed by team. 12:36:10 Signed procedure consent form obtained from patient. 12:36:26 Full Disclosure recording started 12:36:27 - 12:36:34 H&P Date Dictated: 11/09/2016 H&P Addendum completed by physician on day of procedure. (MUST COMPLETE FOR ALL OUTPATIENTS). 12:37:57 Pre-procedure instructions explained to patient. 12:37:57 Pre-op teaching completed and patient verbalized understanding. 12:38:01 Family in waiting room. 12:38:13 Patient NPO since Midnight. 12:40:39 Is the patient allergic to Iodine/contrast media? No. 12:40:40 Is patient on blood thinner?Yes 12:40:45 ACC The patient was administered the following blood thiners within the last 24 hours: ACCPlavix 12:40:47 If diabetic: On Metformin? No 12:40:48 - 12:40:48 ----Pre-sedation anethsthesia assessment.---- 12:40:52 Previous problem with sedation/anesthesia? No ? 12:40:53 Snore? Yes 12:40:55 Sleep apnea? No 12:40:58 Deviated septum? No 12:41:00 Opens mouth fully? Yes 12:41:02 Sticks out tongue? Yes 12:41:07 Airway obstruction? No ? 12:41:09 Dentures? No ? 12:41:14 Patient pain scale 0/10 no pain. 12:41:25 IV patent on arrival in left hand with 0.9% NaCl at [facility]. 12:41:29 Sharps counted by scrub and verified by R.N. 12:41:29 Alarms reviewed by R. N. 12:41:40 Left chest area was prepped with chlora-prep and draped in sterile fashion 12:41:44 Use device set Pacemaker Set 12:42:23 2.0 Ticron Multipack opened to sterile field. 12:42:25 3.0 Vicryl Multipack [id number] opened to sterile field. 12:42:27 5.0 Monocryl PS2 [id number] opened to sterile field. 12:42:28 Mepilex Dressing opened to sterile field. 12:42:55 [employer] quality audit representative SELVIN ARMSTRONG present for procedure. 12:43:07 Grounding pad site Left thigh. 12:52:10 Vital chart was started 12:52:23 Ancef (1Gm/50ml NS) 1 g was administered by January Blair RN; Per physician; 12:52:42 Ancef Irrigation (1gm/500ml NS) 1 g Topical was administered by January Blair RN; used for procedure; 12:52:58 Lidocaine 1% with Epi 20 ml added to field was administered by January Blair RN; used for procedure; 12:54:41 Baseline sample Acquired. 12:54:46 Rhythm: sinus rhythm 12:57:03 Bupivacaine 0.5% 10 ml ADDED TO FIELD was administered by Hardeep Arriaga MD; ; 13:05:38 Physician arrived 13:05:38 --------ALL STOP TIME OUT------ 13:05:39 Final Timeout: patient, procedure, and site verified with staff and physician. All members of the team are in agreement. 13:05:48 Left chest site verified by team. 13:06:21 Physical assessment completed. ASA score P 2 - A patient with mild systemic disease as per Alphonso Potts MD. 13:06:25 Sedation plan: IV Moderate Sedation Versed, Fentanyl 13:06:41 Procedure started. 13:07:17 Versed 1 mg I.V. was administered by Jaclyn Bishop RN; for sedation; 13:07:23 Lidocaine 1% to left subclavicular area by Alphonso Potts MD. 13:07:26 Fentanyl 50 mcg I.V. was administered by Jaclyn Bishop RN; for sedation; 13:07:47 Pre sharps counted by scrub and verified by RN: Sutures: 14 Sponges: 5 Stick needles: 2 Skin needles: 2 Blade: 1 Cautery: 1 13:09:01 Incision made to left subclavicular area. 13:10:17 Versed 0.5 mg I.V. was administered by Jaclyn Bishop RN; for sedation; 13:10:21 Fentanyl 50 mcg I.V. was administered by Jaclyn Bishop RN; for sedation; 13:12:19 Versed 0.5 mg I.V. was administered by Jaclyn Bishop RN; for sedation; 13:13:16 Generator pocket made/opened. 13:15:52 Left subclavian vein accessed with 7Fr Safe Sheath. 13:15:56 Left subclavian vein accessed with 7Fr Safe Sheath. 13:15:59 Peel-a-way sheath was split and removed. 13:16:01 Peel-a-way sheath was split and removed. 13:17:42 Ventricular lead inserted and advanced. 13:17:44 Atrial lead inserted and advanced. 13:18:10 Medtronic 4574-45 PPM Lead opened to sterile field. 13:18:10 Medtronic 4074-52 PPM Lead opened to sterile field. 13:20:29 Atrial lead positioned. 13:20:33 Ventricular lead positioned. 13:20:37 Atrial lead tested. 13:20:41 Ventricular lead tested. 13:22:27 Atrial lead attachment was completed with 2-0 ticron. 13:22:32 Ventricular lead attachment was completed with 2-0 ticron. 13:24:56 Medtronic Advisa MRI PPM Dual Generator opened to sterile field. 13:25:03 PPM Dual was inserted subcutaneously to left chest. 13:30:43 Generator was sutured in place with 2-0 ticron. 13:31:43 Parameters-- Generator: Mode: DEMAND. Lower Rate: 70bpm. Upper Rate: 130bpm. 13:33:06 Parameters--Ventricular P/R Wave: 23.2mV. Current: 0.2mA; Threshold: .2V; Impedence: 688OHMS. 13:34:03 Parameters--Atrial P/R Wave: 2.8mV. Current: 1.3mA; Threshold: ?V; Impedence: 617OHMS. 13:34:15 Subcutaneous closure was completed with 3-0 vicryl. 13:34:19 Skin closure was completed with 5-0 monocryl. 13:34:25 Lt Chest incision was dressed with Mepilex dressing. 13:41:42 Procedure ended.(Physican Out) 13:42:42 Procedure type changed to Cath procedure, Diagnostic procedure, PPM/ICD , PPM Dual Implant, Miscellaneous Procedures, Moderate Sedation up to 45 minutes 13:43:02 Fluoroscopy time 02.40 minutes. 13:43:08 Fluoroscopy dose: 82 mGy 13:43:08 Flurop Dose total: 82 13:43:14 Sharps counted by scrub and verified by R.N. 13:43:21 Insertion/operative site no bleeding no hematoma. 13:43:33 Post-op/insertion site Left Chest area dressed using a Mepilex dressing . 13:44:35 Post-procedure physical assessment completed. ASA score P 2 - A patient with mild systemic disease as per Alphonso Potts MD. 13:44:40 Post procedure rhythm: paced 13:44:43 Post procedure instruction explained to patient.Patient verbalizes understanding. 13:56:42 Immobilizer Extra Large opened to sterile field. 13:59:33 Report given to PCU. 13:59:38 Patient transfered to PCU with Bed. 14:00:21 Vital chart was stopped Device Usage Item Name Manufacture Quantity Catalog Hospital Part Current Minimal Lot# / Number Charge Number Stock Stock Serial# Code 2.0 Ticron Ethicon 9 [id number] 69543 [id number] 5 Multipack 3.0 Vicryl Ethicon 1 [id number] 716660 107806 174307 5 Multipack [id number] 5.0 Ethicon 1 [id number] 921712 371794 124575 5 Monocryl PS2 Y495G Mepilex Cardinal 1 673438 555708 062744 942509 5 Dressing Health Medtronic Medtronic 1 4574-45 479895 768163 5 [id number] 4574-45 PPM Lead Medtronic Medtronic 1 4074-52 283875 314067 5 [id number] 4074-52 PPM Lead Medtronic Medtronic 1 [id number] 391160 222368 5 [id number] Advisa MRI PPM Dual Generator Immobilizer Cardinal 1 [id number] 218981 167979 962219 5 Extra Large Health Signature Audit [place] Stage Time Signature Unsigned Intra-Procedure 11/09/2016 Bran 2:00:18 PM Justo RT (R) (CV) Signatures Monitor : Bran Signature : Justo RT Date : Time : [address] [id number] [place] [id number]
[~2016-11-09 10:29] MED LIST changes: +CADUET 5 MG-101 EACH PO
[2016-11-09] MEDS ORDERED: CADUET 10 MG/201 TAB (11:02)
[2016-11-09 11:29] LABS: HEMATOCRIT 43.3 % (42.0-54.0); HEMOGLOBIN 14.2 g/dL (13.5-17.5); MCH 28.7 pg (26.0-34.0); MCHC 32.8 g/dL (31.0-37.0); MCV 87.5 fL (80.0-100.0); MEAN PLATELET VOLUME 9.8 fL (7.4-10.4); RBC 4.95 10x6/uL (4.20-6.10); RDW 14.1 % (11.5-14.5); WBC 8.9 10x3/uL (4.8-10.8)
[2016-11-09 11:34] VITALS: BP 138/79; BMI 28.0
[2016-11-09 11:42] LABS: INR 0.93 (0.85-1.17); PROTIME 12.3 SECONDS (11.6-15.0)
[2016-11-09 11:43] LABS: APTT 31.2 SECONDS (22.8-39.4)
[2016-11-09 11:49] LABS: ANION GAP 14.2 mmol/L (8-16); CALCIUM 8.7 mg/dL (8.5-10.1); CARBON DIOXIDE 21.3 mmol/L (21.0-32.0); CREATININE - SERUM 1.8 mg/dL (0.6-1.3); POTASSIUM - SERUM 4.5 mmol/L (3.5-5.1)
--- NOTE | 2016-11-09 14:19 | NUR ---
TRANSFER FROM UNDERWRITING ASSISTANT BY BED. VS WNL. LEFT CHEST DRSG CLEAN AND DRY. LEFT ARM IN SLING. CALL LIGHT IN REACH. WILL CONT. PLAN OF CARE.
[2016-11-09 14:22] VITALS: BP 146/80; Ht 182.9 cm; Wt 93.6 kg
[2016-11-09 15:56] VITALS: BP 148/85
--- NOTE | 2016-11-09 19:00 | NUR ---
REPORT RECIEVED, CHECKED IN ON PATIENT. DENIES PAIN/NEEDS ATT. BED LOW AND LOCKED, CALL LIGHT IN REACH. WILL CPOC.
--- NOTE | 2016-11-09 21:10 | NUR ---
ASSESSMENT COMPLETE, PLEASE SEE FLOW SHEETS FOR DETAILS. DENIES PAIN/NEEDS ATT. BED LOW AND LOCKED, CALL LIGHT IN REACH. WILL CPOC.
--- NOTE | 2016-11-10 01:32 | NUR ---
SLEEPING, RR EVEN AND UNLABORED. NO S&S OF ACUTE DISTRESS NOTED. BED LOW AND LOCKED, CALL LIGHT IN REACH. WILL CPOC.
[2016-11-10 04:51] VITALS: BP 154/99
[2016-11-10 09:07] VITALS: BP 143/92
--- NOTE | 2016-11-10 10:08 | NUR ---
IV AND TELEMETRY DCD. DC PLANS GIVEN. UNDERSTANDING VOICED. ESCORTED TO CAR BY W/C.
--- NOTE | 2016-11-11 13:25 | OP ---
PATIENT NAME: GUS TERAN MEDICAL RECORD: [id number] :45 LOCATION:DSHAYAN ADMISSION DATE: SURGEON: RUTH GONZALEZ MD OPERATION DATE: 11/09/16 PROCEDURE: Lead portion of permanent pacemaker placement. SURGEON: Alphonso Potts M.D. INDICATION: Sick sinus syndrome with paroxysmal atrial fibrillation and pauses. PROCEDURE IN DETAIL: After left subclavian was cannulated via modified Seldinger technique via Dr. Potts, first under fluoroscopic guidance I placed the right ventricular lead into the right ventricular apex without difficulty. After adequate thresholds and R waves were obtained, again under fluoroscopic guidance I placed the right atrial lead in the right atrial appendage without difficulty. After adequate P waves and thresholds obtained, we then attached the leads to the appropriate poles of the generator and the pocket was closed by Dr. Schwab. IMPRESSION: Successful lead portion of permanent pacemaker placement. COMPLICATIONS: None. ESTIMATED BLOOD LOSS: Minimal. DISPOSITION: To the floor stable. RUTH GONZALEZ MD at 1325 CC: [id number] DICTATION DATE: 11/09/16 1500 SEWING MACHINE REPAIRER: DM 11/10/16 0952 DEP CLI 11/10/16 [facility] [address] [place] [address]
== END 2016-11-10 10:09 | disposition home or self-care (01) ==
LOC: D.CATH 10:29 → D.M2 14:10 → D.CATH 11-10 10:09
PROVIDERS: Internal Medicine Cardiovascular Disease
DX: I49.5 Sick sinus syndrome (principal); I48.0 Paroxysmal atrial fibrillation; I10 Essential (primary) hypertension; E78.5 Hyperlipidemia, unspecified; Z01.812 Encounter for preprocedural laboratory examination

== ENCOUNTER → 2018-02-10 14:58 | Outpatient (CLI) | payer MEDICARE, OTHER ==
[2016-11-09 14:22] VITALS: BMI 28.0
[~2018-02-10 14:58] MED LIST changes: +CADUET 10 MG/201 TAB; +NORCO 10-325 TA1 TAB PO
[2018-02-10 15:52] LABS: CREATININE - SERUM 1.9 mg/dL (0.6-1.3)
== END | disposition home or self-care (01) ==
LOC: D.CT 14:58
PROVIDERS: Family Medicine
DX: K57.92 Diverticulitis of intestine, part unspecified, without perforation or abscess without bleeding (principal)

== ENCOUNTER 2018-03-02 05:50 | Day surgery (SDC) | payer MEDICARE, OTHER ==
[2018-03-01 09:07] LABS: BASOPHILS 0.8 % (0-2); EOSINOPHILS 2.4 % (0-7); HEMATOCRIT 44.1 % (42.0-54.0); HEMOGLOBIN 14.6 g/dL (13.5-17.5); IMMATURE GRANULOCYTES 0.3 % (0-5); LYMPHOCYTES 28.7 % (15-50); MCH 28.7 pg (26.0-34.0); MCHC 33.1 g/dL (31.0-37.0); MCV 86.6 fL (80.0-100.0); MEAN PLATELET VOLUME 9.6 fL (7.4-10.4); NEUTROPHILS 59.8 % (40-80); PLATELET COUNT 236 10x3/uL (130-400); RBC 5.09 10x6/uL (4.20-6.10); RDW 13.8 % (11.5-14.5); WBC 7.6 10x3/uL (4.8-10.8)
[2018-03-01 09:15] LABS: ANION GAP 10.8 mmol/L (8-16); CALCIUM 9.4 mg/dL (8.5-10.1); CARBON DIOXIDE 26.7 mmol/L (21.0-32.0); CREATININE - SERUM 1.8 mg/dL (0.6-1.3); POTASSIUM - SERUM 4.5 mmol/L (3.5-5.1)
[~2018-03-02] VITALS: Ht 180.3 cm; Wt 94.3 kg
--- NOTE | ~2018-03-02 | OP ---
PATIENT NAME: GUS TERAN MEDICAL RECORD: [id number] :45 LOCATION:D.[facility] ADMISSION DATE: SURGEON: ALPHONSO HERNANDEZ MD DATE OF OPERATION: 03/02/2018 PREOPERATIVE DIAGNOSES: 1. Recurrent ventral incisional hernia. 2. Coronary artery disease. 3. Hypercholesterolemia. POSTOPERATIVE DIAGNOSES: 1. Recurrent ventral incisional hernia. 2. Coronary artery disease. 3. Hypercholesterolemia. PROCEDURE: Recurrent incisional hernia repair with Ventralex ST 8 cm mesh. SURGEON: Alphonso Hernandez MD WELDING EQUIPMENT REPAIRER: Meera Quispe APRN REPORT OF PROCEDURE: The patient's abdomen was prepped and draped in sterile fashion. A semicircular incision was made on the inferior aspect of the umbilicus. Electrocautery was used to dissect through the subcutaneous tissues. We came through the umbilical stalk where there was noted to be umbilical hernia defect. As we uncovered the fascia, there was noted to be an old incision site with permanent suture present. These permanent sutures were removed. There were a total of 4 hernia defects present in the midline, these extended from just below the umbilicus all the way up to a few centimeters above the umbilicus. We freed up the fascia all around these areas above and below and took down any adhesions that were present in the intra-abdominal surface. Once everything was cleared off, we opened up some of the fascial bridges and inserted an [address] mesh. This was sutured down on all sides using multiple interrupted 0 Prolenes. The mesh appeared to rest in good position against the anterior abdominal wall. We then closed the fascia in the midline overlying the mesh using a running 0 Vicryls. The wound was irrigated out with normal saline and care was taken to assure there was no sign of any surgical bleeding. At this point, the umbilicus was tacked down to the fascia using an interrupted 3-0 Vicryl. Subcutaneous tissues were reapproximated with interrupted 3-0 Vicryls and the skin was closed with running subcutaneous 5-0 Monocryl. A total of 10 mL of 0.25% Marcaine with epinephrine was infused into the surrounding tissues and the wound was dressed appropriately. COMPLICATIONS: None. CONDITION: Stable. ANESTHESIA: General endotracheal and local. BLOOD LOSS: Minimal. TRANSINT:[id number] Voice Confirmation ID: [id number] DOCUMENT ID: [id number] OPERATIVE REPORT [id number] GUS TERAN CHRISTIAN MD at 1219 CC: MYRIAM CRAFT MD [id number] DICTATION DATE: 03/02/18923 PAPERHANGER PIPE: 03/02/1842 [facility] [place] 03/02/18 [place] [id number] [place] [id number]
[~2018-03-02 05:50] MED LIST changes: -NORCO 10-325 TA1 TAB PO
[2018-03-02 06:43] VITALS: BP 140/84; Ht 180.3 cm; Wt 94.3 kg
[2018-03-02 07:11] LABS: HCG URINE NEGATIVE
[2018-03-02] MEDS ORDERED: NORCO 10-325 TA1 TAB PO (09:19)
== END 2018-03-02 14:55 | disposition home or self-care (01) ==
LOC: D.OPS 05:50 → D.PAN 08:00 → D.OPS 09:10 → D.PAN 09:15 → D.OPS 09:15
PROVIDERS: Surgery
DX: K43.2 Incisional hernia without obstruction or gangrene (principal); I25.10 Atherosclerotic heart disease of native coronary artery without angina pectoris; E78.00 Pure hypercholesterolemia, unspecified; Z01.812 Encounter for preprocedural laboratory examination

== ENCOUNTER → 2018-05-25 08:10 | Outpatient (CLI) | payer MEDICARE, OTHER ==
[2018-03-02 06:43] VITALS: BMI 29.0
[~2018-05-25 08:10] MED LIST changes: +NORCO 10-325 TA1 TAB PO
== END | disposition home or self-care (01) ==
LOC: D.CT 08:10
DX: K57.92 Diverticulitis of intestine, part unspecified, without perforation or abscess without bleeding (principal)

== ENCOUNTER 2018-09-20 10:04 | Outpatient (CLI) | payer MEDICARE, OTHER ==
[2018-03-02 06:43] VITALS: BMI 29.0
[2018-09-20 10:16] LABS: HEMATOCRIT 45.7 % (42.0-54.0); HEMOGLOBIN 15.8 g/dL (13.5-17.5); MCH 29.6 pg (26.0-34.0); MCHC 34.6 g/dL (31.0-37.0); MCV 85.6 fL (80.0-100.0); MEAN PLATELET VOLUME 9.2 fL (7.4-10.4); RBC 5.34 10x6/uL (4.20-6.10); RDW 14.6 % (11.5-14.5); WBC 7.8 10x3/uL (4.8-10.8)
== END 2018-09-20 10:05 | disposition home or self-care (01) ==
LOC: D.OPS 10:04 → EDSTATUS 10:30 → D.OPS 10:30
PROVIDERS: Anesthesiology; ATTEND Internal Medicine Gastroenterology
DX: K57.30 Diverticulosis of large intestine without perforation or abscess without bleeding (principal); R10.32 Left lower quadrant pain; K21.9 Gastro-esophageal reflux disease without esophagitis

== ENCOUNTER 2018-12-11 11:01 | Day surgery (SDC) | payer MEDICARE, OTHER ==
[~2018-12-11] VITALS: Ht 180.3 cm; Wt 95.9 kg
[2018-12-11 11:21] LABS: HEMOGLOBIN 15.6 g/dL (13.5-17.5); MCH 29.2 pg (26.0-34.0); MCHC 33.9 g/dL (31.0-37.0); MCV 86.1 fL (80.0-100.0); MEAN PLATELET VOLUME 9.6 fL (7.4-10.4); RBC 5.34 10x6/uL (4.20-6.10); RDW 13.8 % (11.5-14.5); WBC 8.2 10x3/uL (4.8-10.8)
[2018-12-11 12:56] VITALS: BP 137/83; Ht 180.3 cm; Wt 95.9 kg
--- NOTE | 2018-12-11 15:06 | NUR ---
DC INSTRUCTIONS GIVEN TO PT/SPOUSE. STATE UNDERSTANDING. DC'D IV CATH FULLY INTACT.
--- NOTE | 2018-12-11 15:19 | NUR ---
PT LEFT UNIT VIA WC AT 1515
--- NOTE | 2018-12-12 18:12 | OP ---
PATIENT NAME: GUS TERAN MEDICAL RECORD: [id number] :45 [facility] DATE: SURGEON: JENNIFER DE SANTIAGO DO DATE OF OPERATION: 12/11/2018 PROCEDURE: Colonoscopy with polypectomy. INDICATION FOR PROCEDURE: Diverticulosis of sigmoid colon, left lower quadrant abdominal pain. SCOPE: Olympus video pediatric colonoscope. MEDICATIONS: Propofol 380 mg IV per anesthesia. WITHDRAWAL TIME: 16 minutes. ESTIMATED BLOOD LOSS: Minimal. COMPLICATIONS: None. FINDINGS: Informed consent was given. The patient was made comfortable with the above medication. After reaching an adequate level of sedation by slow IV push, the patient was placed on his left side. A digital rectal examination was performed and was normal. The endoscope was then advanced under direct visualization through the rectum to the cecum, confirmed by the presence of the appendiceal orifice and the ileocecal valve. The endoscope was slowly withdrawn and the mucosa was carefully examined. Quality of the prep was fair. There were 3 polyps visualized on today's examination. Two were located in the transverse colon. They were both benign appearing, sessile, and measured approximately 4-6 mm in diameter. They were both removed using a hot snare in one piece and completely retrieved. In the ascending colon, there was a single polyp which was benign appearing and sessile. It measured approximately 4-5 mm in diameter. It was removed using a hot snare in one piece and completely retrieved. There was evidence of diverticulosis involving the descending and the sigmoid colon. There was no evidence of diverticulitis. Retroflexion was performed in the rectum with visualization of grade I internal hemorrhoids without bleeding. The endoscope was withdrawn from the patient. The patient tolerated the procedure well and there were no complications. IMPRESSION: 1. Three polyps as described above, removed using a hot snare. 2. Moderate diverticulosis of descending and sigmoid colon. 3. Grade I internal hemorrhoids without bleeding. PLAN AND RECOMMENDATIONS: 1. Discharge home when recovery parameters are met. 2. Follow up biopsy specimen results. 3. High-fiber diet. 4. Continue current medications. 5. Recall colonoscopy in 5 years. TRANSINT:[id number] Voice Confirmation ID: [id number] DOCUMENT ID: [id number] OPERATIVE REPORT [id number] GUS TERAN JENNIFER DE SANTIAGO DO at 8708 CC: [id number] DICTATION DATE: 12/11/18 1431 FOXING CUTTING MACHINE OPERATOR: 12/11/18 1443 [facility] [place] 12/11/18 [place] [id number] [place] [phone]
== END 2018-12-11 15:15 | disposition home or self-care (01) ==
LOC: D.OPS 11:01
PROVIDERS: Anesthesiology; ATTEND Internal Medicine Gastroenterology
DX: K57.30 Diverticulosis of large intestine without perforation or abscess without bleeding (principal); K63.5 Polyp of colon

== ENCOUNTER → 2020-09-18 10:53 | Outpatient (CLI) | payer MEDICARE ==
[2018-12-11 12:56] VITALS: BMI 29.5
== END | disposition home or self-care (01) ==
LOC: D.HCCARDIO 08:30
PROVIDERS: ATTEND Internal Medicine Cardiovascular Disease
DX: I20.9 Angina pectoris, unspecified (principal)

== ENCOUNTER 2020-09-29 11:18 | Day surgery (SDC) | payer MEDICARE ==
[~2020-09-29] VITALS: Ht 180.3 cm; Wt 91.7 kg
--- NOTE | ~2020-09-29 | HEMODYNAMI ---
PATIENT:GUS TERAN MEDICAL RECORD: [id number] : 45 LOCATION:[facility] ADMISSION DATE: 09/29/20 Generatedon:113:21 Patient name: GUS TERAN Patient #: [id number] SSN: [id number] : 1945 Date of study: 09/29/2020 Page: Of Hemodynamic Procedure Report Patient Data Patient Demographics Procedure consent was obtained First Name: UGS Gender: Male Last Name: PARUL : 1945 Middle Initial: D Age: 75 year(s) Patient #: [id number] Race: SSN: [id number] Additional ID: [id number] Contact details Address: [address] [place] [address] lane State: [place] City: [place] Zip code: [address] Past Medical History Performed procedures and imaging results Date Procedure Procedure Results Comments 09/18/2020 Stress testing Positive->Intermediate with SPECT MPI risk Allergies: No known allergies Admission Admission Data Admission Date: 09/29/2020 Admission Time: 11:18 Arrival Date: 09/29/2020 Arrival Time: 0:00 Admit Source: Other Insurance Payor: Medicare [facility] #: [id number] Height (in.): 72 BSA: 2.14 (m2) Height (cm.): 182.88 BMI: 27.4 (kg/m2) Weight (lbs.): 202 Weight (kg.): 91.63 Lab Results Lab Result Date: 09/29/2020 Lab Result Time: 0:00 Biochemistry Name Units Result Min Max BUN mg/dl 25 --(----)-* 7 18 Creatinine mg/dl 1.8 --(----)-* 0.6 1.3 eGFR ml/min 39 *-(----)-- 90 120 NONAFRICAN CBC Name Units Result Min Max Hematocrit % 47.7 --(-*--)-- 42 54 Hemoglobin g/dl 15.6 --(--*-)-- 13.5 17.5 Procedure Procedure Types Cath Procedure Diagnostic Procedure [facility] w/Coronaries Sedation Charges Moderate Sedation 10-24 minutes Procedure Description Procedure Date Procedure Date: 09/29/2020 Procedure Start Time: 13:05 Procedure End Time: 13:19 Procedure Staff Name Function Pipo Carter MD Performing Physician Kathrin Dover RT Monitor Olga Lidia Linder RT Scrub Sam Atkinson RN Nurse Procedure Data Cath Procedure Fluoroscopy Diagnostic fluoroscopy Total fluoroscopy Time: 3.8 time: 3.8 min min Diagnostic fluoroscopy Total fluoroscopy dose: 531 dose: 531 mGy mGy Contrast Material Contrast Material Type Amount (ml) Isovue 370 56 Entry Location Entry Primary Successful Side Size Upsize Upsize Entry Closure Lassiter ccessful Closure Location (Fr) 1 (Fr) 2 (Fr) Remarks Device Remarks Radial Right 6 Fr Mechanical artery Short Compression Estimated blood loss: 5 ml Diagnostic catheters Device Type Used For End Catheter Placement DIAGNOSTIC [place] 110cm 5 Procedure Fr catheter ([id number]) DIAGNOSTIC Pigtail 5Fr Procedure catheter ([id number]) Procedure Complications No complications Procedure Medications Medication Administration Route Dosage Oxygen etCO2 Nasal cannula 2 l/min Lidocaine 2% added to field 20 Heparin Flush Bag added to field 2 bags (1000units/500ml NS) 0.9% NaCl I.V. 100 ml/hr Radial Cocktail I.A. 1 syringe (Verapamil 2mg/Nitro 400mcg/Heparin 1500units) Versed I.V. 1 mg Fentanyl I.V. 50 mcg Versed I.V. 1 mg Fentanyl I.V. 50 mcg Versed I.V. 1 mg Versed I.V. 0.5 mg Hemodynamics Rest BSA: 2.14 (m2) HGB: 15.6 (g/dl) O2 Consumption: Estimated: 245.57 (ml/min) O2 Co nsumption indexed: Estimated:114.75 (ml/min/m) Heart Rate: 69 (bpm) Pressure Samples Time Site Value (mmHg) Purpose Heart Use Rate(bpm) 13:08 LV 121/62,74 Snapshot 64 13:09 LV 83/-13,4 Snapshot 60 13:15 LV 103/-2,7 Snapshot 60 13:16 AO 112/58(80) Pullback 62 13:16 LV 113/-4,1 Pullback 62 Gradients Valve Time Site 1 Site 2 Mean SEP/DFP Peak To Heart Use (mmHg) (sec/min) Peak Rate (mmHg) (bpm) Aortic 13:16 LV AO 12 5 1 62 113/-4,1 112/58(80) Calculations Valve P-P Mean Valve Index Valve Source Name Gradient Area Flow (cm2) Aortic 1 12 1 12 Snapshots Pre Cath Intra NCS Post Cath Vital Signs Time Heart Resp SPO2 etCO2 NIBP (mmHg) Rhythm Pain Sedation Rate (ipm) (%) (mmHg) Status Level (bpm) 12:51:49 60 13 96 17.2 153/77(132) Paced 0 (11) 10(A) , No pain 12:56:05 60 17 94 26.2 144/88(121) Paced 0 (11) 10(A) , No pain 13:00:24 59 13 94 21.6 134/86(108) Paced 0 (11) 10(A) , No pain 13:04:40 60 17 96 23.1 137/82(117) Paced 0 (11) 9(A) , No pain 13:08:54 62 15 95 14.9 103/66(84) Paced 0 (11) 9(A) , No pain 13:12:59 59 11 96 24.7 115/73(97) Paced 0 (11) 9(A) , No pain 13:17:11 59 13 94 14.9 115/70(96) Paced 0 (11) 9(A) , No pain 13:20:24 60 15 93 17.9 127/70(104) Paced 0 (11) 10(A) , No pain Medications Time Medication Route Dose Verified Delivered Reason Not es Effectiveness by by 12:53:20 Oxygen etCO2 2 l/min Pipo Buffie used for Nasal Raul Atkinson RN procedure cannula 12:53:27 Lidocaine 2% added 20ml Pipo Pipo for local to vial Raul Carter MD anesthetic field 12:53:33 Heparin Flush added 2 bags Pipo Pipo used for Bag to Raul Carter MD procedure (1000units/500ml field NS) 12:53:43 0.9% NaCl I.V. 100 Pipo Buffie Per physician ml/hr Raul Atkinson RN 12:59:41 Versed I.V. 1 mg Pipo Buffie for sedation Raul Atkinson RN 12:59:49 Fentanyl I.V. 50 mcg Pipo Buffie for sedation Raul Atkinson RN 13:05:58 Versed I.V. 1 mg Pipo Buffie for sedation Raul Atkinson RN 13:06:02 Fentanyl I.V. 50 mcg Pipo Buffie for sedation Raul Atkinson RN 13:07:28 Radial Cocktail I.A. 1 Pipo Pipo for (Verapamil syringe Raul Carter MD anticoagulation 2mg/Nitro 400mcg/Heparin 1500units) 13:10:14 Versed I.V. 1 mg Pipo Buffie for sedation Raul Atkinson RN 13:14:30 Versed I.V. 0.5 mg Pipo Buffie for sedation Raul Atkinson RN Procedure Log Time Note 12:34:44 Informed consent obtained and on chart 12:34:53 Sam Atkinson RN sent for patient. Start room use. 12:34:58 Diagnostic Cath Status : Elective 12:35:21 Arrival Date: 09/29/2020 12:00:00 AM 12:35:21 Admit Source: Other 12:35:24 Insurance Payor : Medicare 12:35:49 Patient Height : 72 inches 12:35:53 Patient Weight : 202 lbs 12:38:15 ACC Patient presents with Stable Angina CCS Anginal Class 2--Slight limitation of ordinary activity. 12:38:18 Procedure Status Elective Heart Cath (OP). 12:38:20 Time tracking: Regular hours (M-F 7:00 - 5:00) 12:38:25 Plan of Care:Hemodynamics will remain stable., Cardiac rhythm will remain stable., Comfort level will be maintained., Respiratory function will remain adequate., Patient/ family verbilizes understanding of procedure., Procedure tolerated without complication., Recovers from procedure without complications.. 12:38:35 H&P Date Dictated: 09/09/2020 Within 30 days and on chart.. 12:38:38 Family in waiting room. 12:38:39 Patient NPO since Midnight. 12:38:56 Stress Test: yes; abnormal INFERIOR AND APICAL 12:40:20 Patient received from Pre/Post Procedure Room to CCL 1 Alert and oriented. Tansferred to table in Supine position. 12:40:21 Warm blankets applied, and bruce hugger turned on for patient comfort. 12:40:22 Correct patient and procedure confirmed by team. 12:40:22 ECG and BP/O2 sat monitors applied to patient. 12:40:23 Pre-procedure instructions explained to patient. 12:40:24 Pre-op teaching completed and patient verbalized understanding. 12:40:30 Patient allergic to SULFA 12:41:01 Lab Result : Creatinine 1.8 mg/dl 12:41:01 Lab Result : BUN 25 mg/dl 12:41:01 Lab Result : Hemoglobin 15.6 g/dl 12:41:01 Lab Result : eGFR NONAFRICAN 39 ml/min 12:41:01 Lab Result : Hematocrit 47.7 % 12:41:14 Is the patient allergic to Iodine/contrast media? No. 12:50:37 Vital chart was started 12:51:36 Baseline sample Acquired. 12:51:40 Rhythm: sinus rhythm 12:51:44 Was the patient premedicated? No 12:51:45 Is patient on blood thinner?No 12:51:47 Patient diabetic? No. 12:51:48 If diabetic: On Metformin? N/A 12:51:49 ----Pre-sedation anethsthesia assessment.---- 12:52:06 Previous problem with sedation/anesthesia? No ? 12:52:07 Snore? Yes 12:52:09 Sleep apnea? Unknown 12:52:20 Deviated septum? No 12:52:25 Opens mouth fully? Yes 12:52:26 Sticks out tongue? Yes 12:52:30 Airway obstruction? No ? 12:52:32 Dentures? No ? 12:52:37 Pre procedure: right dorsailis pedis pulse 1+ Palpable, but thready & weak; easily obliterated 12:52:40 Modified Justen's test Ulnar < 7 seconds 12:52:42 Patient pain scale 0/10 ?. 12:52:47 IV patent on arrival in left antecubital with 0.9% NaCl at KVO. 12:52:50 Lab results completed and on chart. 12:52:58 Right Radial & Right Groin area was prepped with chlora-prep and draped in sterile fashion 12:52:59 Alarms reviewed by R. N. 12:52:59 Sharps counted by scrub and verified by R.N. 12:53:02 Use device set Radial Dx or PCI 12:53:04 ACIST Syringe (98392) opened to sterile field. 12:53:04 Medline Cath Pack ([id number]) opened to sterile field. 12:53:05 Bag Decanter () opened to sterile field. 12:53:05 ACIST Hand Control (15114) opened to sterile field. 12:53:06 ACIST Manifold (84886) opened to sterile field. 12:53:11 MBrace Wrist Support ([id number]) opened to sterile field. 12:53:12 NEEDLE Cook 21G 4cm Radial (R86207) opened to sterile field. 12:53:14 EMERALD Guide Wire (773-246) opened to sterile field. 12:53:14 SHEATH 6FR RAIN ([id number]) opened to sterile field. 12:53:20 Oxygen 2 l/min etCO2 Nasal cannula was administered by Sam Atkinson RN; used for procedure; Verbal order read back and verified. 12:53:27 Lidocaine 2% 20ml vial added to field was administered by Pipo Carter MD; for local anesthetic; Verbal order read back and verified. 12:53:33 Heparin Flush Bag (1000units/500ml NS) 2 bags added to field was administered by Pipo Carter MD; used for procedure; Verbal order read back and verified. 12:53:43 0.9% NaCl 100 ml/hr I.V. was administered by Sam Atkinson RN; Per physician; Verbal order read back and verified. 12:54:46 Risk of Mortality: 0.1 12:54:51 Risk of blood transfusion: 0.6 12:55:06 Risk of PETERSON: 2.9 12:55:19 3b) 30-44 Moderately reduced kidney function. 12:55:22 Maximum allowable contrast dose (3.7 X eGFR X 0.75)108 ml. 12:57:18 --------ALL STOP TIME OUT------ 12:57:18 Final Timeout: patient, procedure, and site verified with staff and physician. All members of the team are in agreement. 12:57:21 Right Radial & Right Groin site verified by team. 12:57:24 Fire Safety Assessment: A--An alcohol-based skin anteseptic being used preoperatively., C--Open oxygen or nitrous oxide is being used., D--An ESU, laser, or fiber-optic light is being used. 12:57:27 Physical assessment completed. ASA score P 2 - A patient with mild systemic disease as per Pipo Carter MD. 12:57:31 Sedation plan: IV Moderate Sedation Medication:Versed, Fentanyl 12:59:41 Versed 1 mg I.V. was administered by Sam Atkinson RN; for sedation; Verbal order read back and verified. 12:59:49 Fentanyl 50 mcg I.V. was administered by Sam Atkinson RN; for sedation; Verbal order read back and verified. 13:04:33 Procedure started. 13:04:33 Full Disclosure recording started 13:05:00 Local anesthetic to right radial artery with Lidocaine 2% by Pipo Carter MD.INITIAL ACCESS ONLY 13:05:58 Versed 1 mg I.V. was administered by Sam Atkinson RN; for sedation; Verbal order read back and verified. 13:06:02 Fentanyl 50 mcg I.V. was administered by Sam Atkinson RN; for sedation; Verbal order read back and verified. 13:06:49 A 6 Fr Short sheath was inserted into the Right Radial artery 13:07:08 A DIAGNOSTIC [place] 110cm 5 Fr catheter ([id number]) was advanced over the wire and used for Procedure. 13:07:28 Radial Cocktail (Verapamil 2mg/Nitro 400mcg/Heparin 1500units) 1 syringe I.A. was administered by Pipo Carter MD; for anticoagulation; Verbal order read back and verified. 13:09:00 Zero performed for pressure channel P1 13:09:24 LV hemodynamics recorded. 13:10:14 Versed 1 mg I.V. was administered by Sam Atkinson RN; for sedation; Verbal order read back and verified. 13:10:47 LCA angiography performed. 13:10:50 Injector settings: Ml/sec: 3, Volume: 6, 13:12:04 RCA angiography performed. 13:12:06 Injector settings: Ml/sec: 3, Volume: 6, 13:12:43 ACCDominant side:Right 13:13:13 Catheter exchanged over wire. 13:14:30 Versed 0.5 mg I.V. was administered by Sam Atkinson RN; for sedation; Verbal order read back and verified. 13:15:03 A DIAGNOSTIC Pigtail 5Fr catheter ([id number]) was advanced over the wire and used for Procedure. 13:15:45 LV gram done using BEAL 13:15:59 LV hemodynamics recorded. 13:16:04 Injector settings: Ml/sec: 5, Volume: 15, 13:16:21 EF : 50 % 13:16:42 Catheter removed. 13:16:52 ZEPHYR LARGE TR BAND (144681) opened to sterile field. 13:17:05 Sheath removed intact; hemostasis achieved with Mechanical Compression to the Right Radial artery. 13:17:15 Fluoroscopy time 03.80 minutes. 13:17:19 Fluoroscopy dose: 531 mGy 13:17:19 Flurop Dose total: 531 13:17:26 Dose Area Product 36839 mGy/cm. 13:17:31 Contrast amount:Isovue 370 56ml. 13:17:50 Maximum allowable dose exceeded? No. 13:17:52 Sharps counted by scrub and verified by R.N. 13:17:57 Post Procedure Pulses reassessed and unchanged 13:18:00 Post procedure: right dorsailis pedis pulse 2+ Normal; easily identifiable; not easily obliterated. 13:18:03 Post-procedure physical assessment completed. ASA score P 2 - A patient with mild systemic disease as per Pipo Carter MD. 13:18:06 Post procedure rhythm: unchanged. 13:18:09 Estimated blood loss: 5 ml 13:18:10 Post procedure instruction explained to patient.Patient verbalizes understanding. 13:18:11 Patient needs reinforcement of post procedure teaching. 13:18:24 Procedure ended.(Physican Out) 13:18:37 Procedure type changed to Cath procedure, Diagnostic procedure, LHC, C w/Coronaries, Sedation Charges, Moderate Sedation 10-24 minutes 13:18:53 Procedure and supply charges have been captured, reviewed, submitted and are correct. 13:18:56 Procedure Complication : No complications 13:18:59 Vital chart was stopped 13:19:00 Erath band inflated with 11cc of air. 13:19:02 [facility] Findings: MVD- MD will discuss options w/ pt 13:19:06 Operative report dictated upon procedure completion. 13:19:06 See physician's report for complete and final results. 13:19:08 Report given to Pre/Post Procedure Room. 13:19:12 Patient transfered to Pre/Post Procedure Room with Stretcher. 13:19:14 Procedure ended. 13:19:14 Full Disclosure recording stopped 13:19:20 End room use (Document Last) 13:19:29 End room use (Document Last) Device Usage Item Name Manufacture Quantity Catalog Hospital Part Current Minima l Lot# / Number Charge Number Stock Stock Serial# Code ACIST Acist 1 55894 [id number] [id number] 20 Syringe Medical (34131) Systems Inc Medline Medline 1 [id number] 989406 36466 953322 5 Cath Pack ([id number]) Bag Microtek 1 656981 77901 554074 5 Decanter Medical Inc. () ACIST Hand Acist 1 91779 964570 225343 276386 5 Control Medical (92080) Systems Inc ACIST Acist 1 17003 729775 981018 706342 5 Manifold Medical (93661) Systems Inc MBrace Advanced 1 140-0250-00 157771 33368 472669 5 Wrist Vascular Support Dynamics ([id number]) NEEDLE Cook Cook Medical 1 [id number] 501419 283518 256335 5 21G 4cm Radial (R52639) EMERALD Cardinal 1 502-455 275796 670229 333287 5 Guide Wire Health (502-455) SHEATH 6FR Cardinal 1 7069231 207994 6639092 049657 5 [facility] (1533246) DIAGNOSTIC Terumo 1 405013 302356 019678 116508 5 [place] 110cm 5 Fr catheter (162474) DIAGNOSTIC Cardinal 1 139395Y 627571 034618 829120 5 Pigtail 5Fr Health catheter (775940S) ZEPHYR Cardinal 1 630943 420579 9874796 622175 5 LARGE TR Health BAND (052185) Signature Audit [place] Stage Time Signature Unsigned Intra-Procedure 09/29/2020 Kathrin Dover 1:19:29 PM RT(R) Intra-Procedure 09/29/2020 Sam Atkinson RN 1:20:36 PM Intra-Procedure 09/29/2020 Pipo Carter MD 1:20:58 PM [id number] [place] [address]
[2020-09-29] MEDS ORDERED: ULTRAM50 MG PO (11:29)
[2020-09-29] MEDS ORDERED: prostate med (11:34)
[2020-09-29 11:52] VITALS: BP 152/86; Ht 180.3 cm; Wt 91.7 kg
[2020-09-29 11:56] LABS: BASOPHILS 1.1 % (0-2); EOSINOPHILS 4.1 % (0-7); HEMATOCRIT 47.7 % (42.0-54.0); HEMOGLOBIN 15.6 g/dL (13.5-17.5); LYMPHOCYTES 25.4 % (15-50); MCH 27.8 pg (26.0-34.0); MCHC 32.7 g/dL (31.0-37.0); MCV 85.2 fL (80.0-100.0); MEAN PLATELET VOLUME 7.9 fL (7.4-10.4); MONOCYTES 6.4 % (2-11); PLATELET COUNT 262 10x3/uL (130-400); RDW 14.9 % (11.5-14.5); WBC 9.1 10x3/uL (4.8-10.8)
[2020-09-29 12:11] LABS: ANION GAP 16.7 mmol/L (8-16); CALCIUM 9.7 mg/dL (8.5-10.1); CREATININE - SERUM 1.8 mg/dL (0.6-1.3); LDL-HDL RATIO 1.5 ratio (1.5-3.5); POTASSIUM - SERUM 4.7 mmol/L (3.5-5.1)
--- NOTE | 2020-09-29 13:32 | NUR ---
PT ARRIVES TO ROOM 10 VIA STRETCHER S/P HEART CATH. SEE FIRE PROTECTION SPECIALIST. PLACED ON MONITORS AND ALARMS ON. PT DENIES PAIN OR NEEDS, PT AND SPOUSE GIVEN UPDATE ON PLAN OR CARE AND TIME FRAMES
--- NOTE | 2020-09-29 13:45 | NUR ---
PT RESTING QUIETLY AROUSES EASILY TO VERBAL, FOLLOWS ALL COMMANDS, DENIES PAIN OR NEEDS, PACED ON MONITORS BP 134/73 HR 60, RIGHT WRIST WITH ZBAND INPLACE WITH PALPABLE BRACHIAL AND RADIAL PULSE CAP REFILL WNL AMD MOVES ALL DIGITS, IV INFUSING PER ORDERS, CALL LIGHT WITHIN REACH
--- NOTE | 2020-09-29 14:00 | NUR ---
PT RESTING QUIETLY, VSS, PACED ON MONITOR, SATS 98% RA, RIGHT WRIST STABLE AND ZBAND IN PLACE WITH NO OOZING OR BLEEDING BRACHIAL AND RADIAL PULSE PALPABLE , CAP REFILL WNL AND MOVES ALL DIGITS , DENIES PAIN OR NEEDS, IV INFUSING PER ORDERS, CALL LIGHT WITHIN REACH
--- NOTE | 2020-09-29 14:05 | NUR ---
PT PLACED IN UPRIGHT POSITION GIVEN SANDWICH AND COFFEE, 2CC AIR RELEASED FROM ZBAND WITHOUT OOZING OR BLEEDING NOTED, PULSES PALPABLE, CAP REFILL WNL MOVES ALL DIGITS
--- NOTE | 2020-09-29 14:26 | NUR ---
2CC AIR RELEASED FROM ZBAND WITH OUT OOZING OR BLEEDING NOTED, PULSES PALPABLE, CAP REFILL WNL, MOVES ALL DIGITS, PT CONSUMED 100% SANDWICH BOX
--- NOTE | 2020-09-29 14:35 | NUR ---
DR ALBERT TO ROOM TO SPEAK WITH PT AND SPOUSE
--- NOTE | 2020-09-29 14:45 | NUR ---
PT PROCEDURE SCHEDULE WITH CLARITA SMITH THIS TUESDAY PER DR NAVARRETE ORDERS. PROCEDURE SET FOR 0930 PT TO ARRIVE AT 0800 ON Tuesday10/02/20 PER CLARITA SMITH.
--- NOTE | 2020-09-29 14:57 | NUR ---
2CC AIR RELEASED FROM ZBAND WITHOUT OOZING OR BLEEDING , PULSES PALPABLE, CAP REFILL WNL, MOVES ALL DIGITS, VSS, PACED PER MONITOR, DENIES PAIN OR NEEDS, IV INFUSING PER ORDERS, CALL LIGHT WITHIN REACH
--- NOTE | 2020-09-29 15:12 | NUR ---
RIGHT WRIST WITH ZBAND INPLACE NO OOZING OR BLEEDING , PULSES PALPABLE , CAP REFILL WNL, MOVES ALL DIGITS , DENIES PAIN OR NEEDS, IV INFUSING PER ORDERS, CALL LIGHT WITHIN REACH
--- NOTE | 2020-09-29 15:30 | NUR ---
ALL AIR RELEASED NOW FROM RIGHT ZBAND NO OOZING OR BLEEDING DRESSING C/D/I, PULSES PALPABLE, CAP REFILL WNL, MOVES ALL DIGITS, DENIES PAIN OR NEEDS, DISCHARGE INSTRUCTIONS REVIEWED WITH PT AND SPOUSE ALONG WITH PLAN FOR RETURN ON 10/02/20 @0800 FOR PTCA, PT AND SPOUSE VERBALIZED UNDERSTANDING REGARDING ALL INSTRUCTIONS.
--- NOTE | 2020-09-29 15:50 | NUR ---
PT UP TO DRESS AND AMBULATES TO BATHROOM WITHOUT DIFFICULTY, RIGHT WRIST STABLE WITHOUT OOZING OR BLEEDING , PULSE PALPABLE, DENIES PAIN OR NEEDS
--- NOTE | 2020-09-29 16:00 | NUR ---
PT DISCHARGED FROM UNIT TAKEN TO CAR VIA WHEELCHAIR, PT HAS NO QUESTIONS OR NEEDS AT THIS TIME
== END 2020-09-29 16:00 | disposition home or self-care (01) ==
LOC: D.CATH 11:18
PROVIDERS: ATTEND Internal Medicine Cardiovascular Disease
DX: I25.118 Atherosclerotic heart disease of native coronary artery with other forms of angina pectoris (principal); R94.39 Abnormal result of other cardiovascular function study; E78.5 Hyperlipidemia, unspecified; I10 Essential (primary) hypertension; Z95.0 Presence of cardiac pacemaker; R42 Dizziness and giddiness; I05.9 Rheumatic mitral valve disease, unspecified

== ENCOUNTER 2020-10-02 08:04 | Observation (INO) | payer MEDICARE ==
[~2020-10-02] VITALS: Ht 180.3 cm; Wt 90.9 kg
[2020-10-02] VITALS (10 sets, daily range): BP systolic 123–150; BP diastolic 69–81; Ht 180.3 cm; Wt 90.9 kg
--- NOTE | ~2020-10-02 | HEMODYNAMI ---
PATIENT:GUS TERAN MEDICAL RECORD: [id number] : 45 LOCATION:[facility] ADMISSION DATE: 10/02/20 Generatedon:111:09 Patient name: GUS TERAN Patient #: [id number] SSN: [id number] : 1945 Date of study: 10/02/2020 Page: Of Hemodynamic Procedure Report Patient Data Patient Demographics Procedure consent was obtained First Name: GUS Gender: Male Last Name: PARUL : 1945 Middle Initial: D Age: 75 year(s) Patient #: [id number] Race: SSN: [id number] Additional ID: [id number] Contact details Address: [address] [place] [address] lane State: [place] City: [place] Zip code: [address] Past Medical History Allergies: No known allergies Admission Admission Data Admission Date: 10/02/2020 Admission Time: 8:04 Arrival Date: 10/02/2020 Arrival Time: 9:30 Admit Source: Other Insurance Payor: Medicare [facility] #: [id number] Height (in.): 70.87 BSA: 2.1 (m2) Height (cm.): 180 BMI: 27.78 (kg/m2) Weight (lbs.): 198.42 Weight (kg.): 90 Lab Results Lab Result Date: 10/02/2020 Lab Result Time: 0:00 Biochemistry Name Units Result Min Max BUN mg/dl 26 --(----)-* 7 18 Creatinine mg/dl 2.1 --(----)-* 0.6 1.3 eGFR ml/min 33 *-(----)-- 90 120 NONAFRICAN CBC Name Units Result Min Max Hemoglobin g/dl 14.7 --(-*--)-- 13.5 17.5 Procedure Procedure Types Cath Procedure Sedation Charges Moderate Sedation 55-69 minutes PCI Procedure Hemochron ACT Test Coronary Atherectomy Atherectomy w/PTCA Coronary Initial Procedure Description Procedure Date Procedure Date: 10/02/2020 Procedure Start Time: 9:51 Procedure End Time: 10:45 Procedure Staff Name Function Pipo Carter MD Performing Physician Olga Lidia Linder RT Monitor Kathrin Dover RT Scrub Miguel Ángel Jacobs RN Nurse Procedure Data Cath Procedure Fluoroscopy Diagnostic fluoroscopy Total fluoroscopy Time: 9.8 time: 9.8 min min Diagnostic fluoroscopy Total fluoroscopy dose: 772 dose: 772 mGy mGy Contrast Material Contrast Material Type Amount (ml) Isovue 300 106 Entry Location Entry Primary Successful Side Size Upsize Upsize Entry Closure Succes sful Closure Location (Fr) 1 (Fr) 2 (Fr) Remarks Device Remarks Femoral Right 6 Fr 6 Fr 6 Fr Exoseal artery Short Long Short Estimated blood loss: 5 ml Procedure Complications No complications Procedure Medications Medication Administration Route Dosage 0.9% NaCl I.V. 100 ml/hr Oxygen etCO2 Nasal cannula 2 l/min Heparin Flush Bag added to field 2 bags (1000units/500ml NS) Lidocaine 2% added to field 20 Versed I.V. 1 mg Fentanyl I.V. 50 mcg Oxygen 6 l/min Versed I.V. 1 mg Fentanyl I.V. 50 mcg Versed I.V. 1 mg Fentanyl I.V. 25 mcg Versed I.V. 1 mg Zofran I.V. 4 mg Heparin Bolus 9000 units Versed I.V. 2 mg Fentanyl I.V. 50 mcg Nitroglycerin IC/IA I.C. 100 mcg Cardene I.C. 300 mcg Integrilin (Bolus I.V. 8.5 ml 2mg/ml) Dopamine I.V. drip 5 mcg/kg/min (400mg/250ml D5W) Nitroglycerin IC/IA I.C. 50 mcg Heparin Bolus 2000 units Integrilin Drip I.V. drip 7.3 ml/hr (75mg/100ml) Dopamine I.V. drip 2.5 mcg/kg/min (400mg/250ml D5W) Cardene I.C. 300 mcg Plavix P.O. 600 mg 0.9% NaCl I.V. 250 ml/hr Hemodynamics Rest BSA: 2.1 (m2) HGB: 14.7 (g/dl) O2 Consumption: Estimated: 238.99 (ml/min) O2 Con sumption indexed: Estimated:113.8 (ml/min/m) Heart Rate: 67 (bpm) Snapshots Pre Cath Intra NCS Post Cath Vital Signs Time Heart Resp SPO2 etCO2 NIBP (mmHg) Rhythm Pain Sedation Rate (ipm) (%) (mmHg) Status Level (bpm) 9:27:30 64 16 100 0 155/85(122) NSR 0 (11) 10(A) , No pain 9:31:56 62 12 100 26.2 145/80(104) NSR 0 (11) 10(A) , No pain 9:36:16 70 21 98 21.7 150/81(112) NSR 0 (11) 10(A) , No pain 9:40:36 60 15 93 28.4 144/77(120) NSR 0 (11) 10(A) , No pain 9:44:54 59 17 92 17.9 138/84(101) NSR 0 (11) 10(A) , No pain 9:49:12 59 16 100 29.9 136/77(111) NSR 0 (11) 10(A) , No pain 9:53:32 61 11 100 31.4 137/68(106) NSR 0 (11) 10(A) , No pain 9:57:48 62 12 100 0 128/77(103) NSR 0 (11) 10(A) , No pain 10:02:05 61 13 99 0 125/71(107) NSR 0 (11) 10(A) , No pain 10:06:20 59 16 100 0 127/66(102) NSR 0 (11) 10(A) , No pain 10:10:34 62 22 94 0 113/74(92) NSR 0 (11) 10(A) , No pain 10:14:45 61 12 100 0 120/71(99) NSR w/ ST 0 (11) 10(A) Elevation , No pain 10:18:56 59 12 100 0 111/75(94) NSR w/ ST 0 (11) 10(A) Elevation , No pain 10:22:25 62 16 100 0 85/60(73) NSR w/ ST 0 (11) 10(A) Elevation , No pain 10:25:44 66 15 100 0 102/60(86) NSR w/ ST 0 (11) 10(A) Elevation , No pain 10:29:58 71 12 100 0 94/47(74) NSR w/ ST 0 (11) 10(A) Elevation , No pain 10:31:08 70 13 100 0 93/54(73) NSR w/ ST 0 (11) 10(A) Elevation , No pain 10:35:13 72 15 100 0 91/59(82) NSR w/ ST 0 (11) 10(A) Elevation , No pain 10:39:19 82 15 99 0 105/61(79) NSR w/ ST 0 (11) 10(A) Elevation , No pain 10:43:25 92 16 100 0 112/63(100) Paced 0 (11) 10(A) , No pain 10:53:03 100 16 92 21.7 119/64(96) Paced 0 (11) 10(A) , No pain 11:02:59 75 15 93 0 109/70(91) Paced 0 (11) 10(A) , No pain 11:07:08 75 16 95 0 118/69(95) Paced 0 (11) 10(A) , No pain Medications Time Medication Route Dose Verified Delivered Reason Notes Effectiveness by by 9:33:35 0.9% NaCl I.V. 100 ml/hr Pipo Miguel Ángel used for Raul Jacobs project design engineer 9:33:46 Oxygen etCO2 2 l/min Pipo Miguel Ángel used for Nasal Raul Jacobs project design engineer cannula 9:33:55 Heparin Flush added 2 bags Pipo Pipo used for Bag to Raul Carter MD procedure (1000units/500ml field NS) 9:34:02 Lidocaine 2% added 20ml vial Pipo Pipo for local to Raul Carter MD anesthetic field 9:40:07 Versed I.V. 1 mg Pipo Miguel Ángel for sedation Raul Jacobs RN 9:40:13 Fentanyl I.V. 50 mcg Pipo Miguel Ángel for sedation Raul Jacobs RN 9:47:47 Oxygen simple 6 l/min Pipo Miguel Ángel used for mask Raul Jacobs project design engineer 9:48:45 Versed I.V. 1 mg Pipo Miguel Ángel for sedation Raul Jacobs RN 9:48:48 Fentanyl I.V. 50 mcg Pipo Miguel Ángel for sedation Raul Jacobs RN 9:55:04 Versed I.V. 1 mg Pipo Miguel Ángel for sedation Raul Jacobs RN 9:55:07 Fentanyl I.V. 25 mcg Pipo Miguel Ángel for sedation Raul Jacobs RN 9:57:09 Versed I.V. 1 mg Pipo Miguel Ángel for sedation Raul Jacobs RN 9:57:25 Zofran I.V. 4 mg Pipo Miguel Ángel for nausea Raul Jacobs RN 10:00:06 Heparin Bolus 9000 units Pipo Miguel Ángel for verified Raul Jacobs RN anticoagulation per orlando talbot rn 10:07:43 Versed I.V. 2 mg Pipo Miguel Ángel for sedation Raul Jacobs RN 10:16:09 Fentanyl I.V. 50 mcg Pipo Miguel Ángel for sedation Raul Jacobs RN 10:18:20 Nitroglycerin I.C. 100 mcg Pipo Pipo for IC/IA Raul mendoza 10:20:22 Cardene I.C. 300 mcg Pipo Pipo Per physician Raul Carter MD 10:23:55 Integrilin I.V. 8.5 ml Pipo Miguel Ángel for waste 1.5mL (Bolus 2mg/ml) Raul Jacobs RN antiplatelet therapy 10:28:16 Dopamine I.V. 5 Pipo Miguel Ángel Per physician (400mg/250ml drip mcg/kg/min Raul Jacobs RN D5W) 10:30:53 Cardene I.C. 300 mcg Pipo Miguel Ángel Per physician Raul Jacobs RN 10:32:59 Nitroglycerin I.C. 50 mcg Pipo Miguel Ángel for IC/IA Raul Jacobs RN vasodilation 10:33:12 Heparin Bolus 2000 units Pipo Miguel Ángel for verified Rual Jacobs RN anticoagulation per orlando talbot rn 10:45:21 Integrilin Drip I.V. 7.3 ml/hr Pipo Miguel Ángel for per Dr. (75mg/100ml) drip Raul Jacobs RN antiplatelet Carter therapy 1mcg/kg/min 10:45:57 Dopamine I.V. 2.5 Pipo Miguel Ángel Per physician drip (400mg/250ml drip mcg/kg/min Raul Jacobs RN stopped a t D5W) 1055 10:51:01 Plavix P.O. 600 mg Pipo Miguel Ángel for Raul Jacobs RN antiplatelet therapy 11:03:37 0.9% NaCl I.V. 250 ml/hr Pipo Del Rosario used for Raul Jacobs RN procedure Procedure Log Time Note 9:05:45 Informed consent obtained and on chart 9:05:49 Diagnostic Cath Status : Elective 9:14:08 Admit Source: Other 9:14:11 Patient Height : 70.87 inches 9:14:16 Patient Weight : 198.42 lbs 9:14:19 Arrival Date: 10/02/2020 9:30:00 AM 9:14:54 Insurance Payor : Medicare 9:15:29 Lab Result : eGFR NONAFRICAN 33 ml/min 9:: Lab Result : Hemoglobin 14.7 g/dl 9:: Lab Result : BUN 26 mg/dl :: Lab Result : Creatinine 2.1 mg/dl 9:15: Hemodynamic formulas in Rest were re-calculated based on hemoglobin value from 10/02/2020 12:00:00 AM 9:15:37 Procedure Status PCI. 9:15:40 Miguel Ángel Jacobs RN sent for patient. Start room use. 9:15:41 Time tracking: Regular hours (M-F 7:00 - 5:00) 9:15:46 Plan of Care:Hemodynamics will remain stable., Cardiac rhythm will remain stable., Comfort level will be maintained., Respiratory function will remain adequate., Patient/ family verbilizes understanding of procedure., Procedure tolerated without complication., Recovers from procedure without complications.. 9:19:35 Patient received from Pre/Post Procedure Room to CCL 1 Alert and oriented. Tansferred to table in Supine position. 9:19:36 Warm blankets applied, and bruce hugger turned on for patient comfort. 9:19:37 Correct patient and procedure confirmed by team. 9:19:37 ECG and BP/O2 sat monitors applied to patient. 9:26:17 Vital chart was started 9:26:18 Full Disclosure recording started 9::28 ----Pre-sedation anethsthesia assessment.---- 9::31 Previous problem with sedation/anesthesia? No ? 9:26:33 Snore? Yes 9:26:34 Sleep apnea? Yes 9:26:36 Deviated septum? No 9:26:37 Opens mouth fully? Yes 9:26:44 Sticks out tongue? Yes 9:26:50 Airway obstruction? No ? 9:26:52 Dentures? No ? 9:26:56 Family in waiting room. 9:26:58 Patient NPO since Midnight. 9:27:12 Patient allergic to No known allergies 9:27:20 Patient diabetic? No. 9:27:25 If diabetic: On Metformin? N/A 9:27:28 Is the patient allergic to Iodine/contrast media? No. 9:27:30 Was the patient premedicated? No 9:27:31 Is patient on blood thinner?No 9:27:39 Baseline sample Acquired. 9:32:29 Rhythm: sinus rhythm 9:32:38 H&P Date Dictated: 10/02/2020 H&P Addendum completed by physician on day of procedure. (MUST COMPLETE FOR ALL OUTPATIENTS), New H&P dictated by physician.. 9:32:39 Pre-procedure instructions explained to patient. 9:32:40 Pre-op teaching completed and patient verbalized understanding. 9:32:46 Pre procedure: right dorsailis pedis pulse 2+ Normal; easily identifiable; not easily obliterated 9:32:49 Pre procedure: left dorsailis pedis pulse 2+ Normal; easily identifiable; not easily obliterated 9:32:51 Patient pain scale 0/10 ?. 9:32:58 IV patent on arrival in left antecubital with 0.9% NaCl at O. 9:33:02 Lab results completed and on chart. 9:33:14 Stress Test: yes; abnormal INFERIOR 9:33:17 Right groin area was prepped with chlora-prep and draped in sterile fashion 9:33:18 Alarms reviewed by R. N. 9:33:19 Sharps counted by scrub and verified by R.N. 9:33:35 0.9% NaCl 100 ml/hr I.V. was administered by Miguel Ángel Jacobs RN; used for procedure; Verbal order read back and verified. 9:33:35 Use device set CATH PACK 9:33:36 ACIST Syringe (16578) opened to sterile field. 9:33:37 ACIST Hand Control (83986) opened to sterile field. 9:33:37 ACIST Manifold (08783) opened to sterile field. 9:33:38 Medline Cath Pack ([id number]) opened to sterile field. 9:33:38 Bag Decanter () opened to sterile field. 9:33:39 EMERALD Guide Wire (374-241) opened to sterile field. 9:33:46 Oxygen 2 l/min etCO2 Nasal cannula was administered by Miguel Ángel Jacobs RN; used for procedure; Verbal order read back and verified. 9:33:55 Heparin Flush Bag (1000units/500ml NS) 2 bags added to field was administered by Pipo Carter MD; used for procedure; Verbal order read back and verified. 9:34:02 Lidocaine 2% 20ml vial added to field was administered by Pipo Carter MD; for local anesthetic; Verbal order read back and verified. 9:39:42 SHEATH 6FR Mcbrides (FEF497) opened to sterile field. 9:39:42 INFLATOR Merit BasixCompak (TF4773) opened to sterile field. 9:39:43 TUBING High Pressure Extension Tubing (Raul) ([id number]) opened to sterile field. 9:39:44 Quick Combo opened to sterile field. 9:39:50 Physician arrived 9:39:50 --------ALL STOP TIME OUT------ 9:39:51 Final Timeout: patient, procedure, and site verified with staff and physician. All members of the team are in agreement. 9:39:53 Right groin site verified by team. 9:39:57 Fire Safety Assessment: A--An alcohol-based skin anteseptic being used preoperatively., C--Open oxygen or nitrous oxide is being used., D--An ESU, laser, or fiber-optic light is being used. 9:40:02 Physical assessment completed. ASA score P 2 - A patient with mild systemic disease as per Pipo Carter MD. 9:40:05 3b) 30-44 Moderately reduced kidney function. 9:40:07 Versed 1 mg I.V. was administered by Miguel Ángel Jacobs RN; for sedation; Verbal order read back and verified. 9:40:13 Fentanyl 50 mcg I.V. was administered by Miguel Ángel Jacobs RN; for sedation; Verbal order read back and verified. 9:40:55 Maximum allowable contrast dose (3.7 X eGFR X 0.75)91 ml. 9:40:59 Sedation plan: IV Moderate Sedation Medication:Versed, Fentanyl 9:47:47 Oxygen 6 l/min simple mask was administered by Miguel Ángel Jacobs RN; used for procedure; Verbal order read back and verified. 9:48:13 Zero performed for pressure channel P1 9:48:19 Zero performed for pressure channel P1 9:48:45 Versed 1 mg I.V. was administered by Miguel Ángel Jacobs RN; for sedation; Verbal order read back and verified. 9:48:48 Fentanyl 50 mcg I.V. was administered by Miguel Ángel Jacobs RN; for sedation; Verbal order read back and verified. 9:51:08 Procedure started. 9:51:16 Local anesthetic to right femoral artery with Lidocaine 2% by Pipo Carter MD.INITIAL ACCESS ONLY 9:51:26 A 6 Fr Short sheath was inserted into the Right Femoral artery 9:51:58 BMW 300cm [place] 2 J wire ([id number]) opened to sterile field. 9:52:01 GUIDE 6FR AR 1.0 catheter ([id number]) opened to sterile field. 9:52:14 6 Fr AR 1 guide catheter was inserted over the wire 9:53:38 Quick combo pads placed on patients chest and back. 9:54:18 Guide catheter removed. 9:54:36 SHEATH 6FR Destination (RSR01) opened to sterile field. 9:55:04 Versed 1 mg I.V. was administered by Miguel Ángel Jacobs RN; for sedation; Verbal order read back and verified. 9:55:07 Fentanyl 25 mcg I.V. was administered by Miguel Ángel Jacobs RN; for sedation; Verbal order read back and verified. 9:55:26 Sheath upsized to a 6 Fr Long. 9:55:37 6 Fr AR 1 guide catheter was inserted over the wire 9:57:09 Versed 1 mg I.V. was administered by Miguel Ángel Jacobs RN; for sedation; Verbal order read back and verified. 9:57:25 Zofran 4 mg I.V. was administered by Miguel Ángel Jacobs RN; for nausea; Verbal order read back and verified. 9:57:42 Guide Catheter removed. damaged. 9:58:18 GUIDE 6FR JR 4.0 catheter ([id number]) opened to sterile field. 9:59:11 [place] OmniWire (81299) opened to sterile field. 9:59:21 6 Fr JR 4 guide catheter was inserted over the wire 10:00:06 Heparin Bolus 9000 units was administered by Miguel Ángel Jacobs RN; for anticoagulation; verified per orlando talbot rn Verbal order read back and verified. 10:00:48 Pressure wire advanced. 10:05:30 pressure wire removed; BMW wire advanced 10:05:31 LASER ELCA 0.9 OTW atherectomy catheter (110-002) opened to sterile field. 10:07:43 Versed 2 mg I.V. was administered by Miguel Ángel Jacobs RN; for sedation; Verbal order read back and verified. 10:12:00 Laser pass to pRCA with Fluence of 40 and Rate of 40. 10:12:13 Laser pass to pRCA with Fluence of 60 and Rate of 60. 10:12:53 Laser pass to pRCA with Fluence of 80 and Rate of 80. 10:15:17 Laser catheter removed. 10:16:09 Fentanyl 50 mcg I.V. was administered by Miguel Ángel Jacobs RN; for sedation; Verbal order read back and verified. 10:16:[address] elevation; preparing to give nitro and cardene 10:16:55 Inflate balloon Inflation number: 1 A EUPHORA 3.0 x 20 Balloon ([id number]) was prepped and advanced across the Prox RCA 90, then inflated to 10 VIVI for 0:10 (min:sec) . 10:17:15 Inflation number: 2 The EUPHORA 3.0 x 20 Balloon ([id number]) was reinflated across the Prox RCA , to 11 VIVI for 0:10 (min:sec) . 10:18:20 Nitroglycerin IC/IA 100 mcg I.C. was administered by Pipo Carter MD; for vasodilation; Verbal order read back and verified. 10:20:22 Cardene 300 mcg I.C. was administered by Pipo Carter MD; Per physician; Verbal order read back and verified. 10:23:55 Integrilin (Bolus 2mg/ml) 8.5 ml I.V. was administered by Miguel Ángel Jacobs RN; for antiplatelet therapy; waste 1.5mL Verbal order read back and verified. 10:24:32 Balloon removed over the wire. 10:28:16 Dopamine (400mg/250ml D5W) 5 mcg/kg/min I.V. drip was administered by Miguel Ángel Jacobs RN; Per physician; Verbal order read back and verified. 10:30:53 Cardene 300 mcg I.C. was administered by Miguel Ángel Jacobs RN; Per physician; Verbal order read back and verified. 10:32:59 Nitroglycerin IC/IA 50 mcg I.C. was administered by Miguel Ángel Jacobs RN; for vasodilation; Verbal order read back and verified. 10:33:12 Heparin Bolus 2000 units was administered by Miguel Ángel Jacobs RN; for anticoagulation; verified per orlando talbot rn Verbal order read back and verified. 10:40:33 Wire removed. 10:40:34 Guide catheter removed. 10:41:32 EXOSEAL 6Fr (EX600) opened to sterile field. 10:41:53 Sheath upsized to a 6 Fr Short. 10:42:08 Sheath removed intact; hemostasis achieved with Exoseal to the Right Femoral artery. 10:42:10 Procedure ended.(Physican Out) 10:43:03 Fluoroscopy time 09.80 minutes. 10:43:07 Flurop Dose total: 772 10:43:07 Fluoroscopy dose: 772 mGy 10:43:13 Dose Area Product 85290 mGy/cm. 10:43:30 Contrast amount:Isovue 300 106ml. 10:43:34 Maximum allowable dose exceeded? Yes. 10:43:44 Insertion/operative site no bleeding no hematoma. 10:43:48 Post-op/insertion site Right Femoral artery dressed using a 4 x 4 and Tegaderm. 10:43:50 Post Procedure Pulses reassessed and unchanged 10:43:56 Post procedure rhythm: unchanged. 10:44:03 Estimated blood loss: 5 ml 10:44:05 Post procedure instruction explained to patient.Patient verbalizes understanding. 10:44:07 Patient needs reinforcement of post procedure teaching. 10:44:50 Procedure type changed to Cath procedure, Sedation Charges, Moderate Sedation 55-69 minutes, PCI procedure, Hemochron ACT Test, Coronary Atherectomy, Atherectomy w/PTCA Coronary Initial 10:45:21 Integrilin Drip (75mg/100ml) 7.3 ml/hr I.V. drip was administered by Miguel Ángel Jacobs RN; for antiplatelet therapy; per Dr. Carter 1mcg/kg/min Verbal order read back and verified. 10:45:29 Procedure and supply charges have been captured, reviewed, submitted and are correct. 10:45:34 Procedure Complication : No complications 10:45:37 Vital chart was stopped 10:45:47 Operative report dictated upon procedure completion. 10:45:47 See physician's report for complete and final results. 10:45:54 Report given to Pre/Post Procedure Room. 10:45:57 Dopamine (400mg/250ml D5W) 2.5 mcg/kg/min I.V. drip was administered by Miguel Ángel Jacobs RN; Per physician; drip stopped at 1055 Verbal order read back and verified. 10:45:57 Patient transfered to Pre/Post Procedure Room with Stretcher. 10:45:58 Procedure ended. 10:45:58 Full Disclosure recording stopped 10:46:06 ACC-PCI Only Patient was given prescriptions, or instructed by Pipo Carter MD to start/continue the following medications upon discharge: Plavix 10:50:54 TUBING High Pressure Extension (IABP) opened to sterile field. 10:51:01 Plavix 600 mg P.O. was administered by Miguel Ángel Jacobs RN; for antiplatelet therapy; Verbal order read back and verified. 10:52:48 ACT drawn and resulted at HI seconds. (normal therapeutic range 180-240 seconds). 10:54:29 End room use (Document Last) 10:56:41 End room use (Document Last) 10:57:13 End room use (Document Last) 10:59:00 Laser total pulses delivered: 2141 10:59:08 Laser total treatment time: 0 minutes 37 seconds 11:01:57 Vital chart was started 11:03:37 0.9% NaCl 250 ml/hr I.V. was administered by Miguel Ángel Jacobs RN; used for procedure; Verbal order read back and verified. 11:09:55 Vital chart was stopped Intervention Summary Intervention Notes Time ActionType Lesion and Equipment Action# Pressure Duration Attributes Used 10:16:55 Inflate Prox RCA EUPHORA 1 10 00:10 balloon 3.0 x 20 Balloon ([id number]) 10:17:15 Reinflate Prox RCA EUPHORA 2 11 00:10 balloon 3.0 x 20 Balloon ([id number]) Device Usage Item Name Manufacture Quantity Catalog Number Hospital Part Current Minim al Lot# / Charge Number Stock Stock Serial# Code ACIST Acist 1 55053 950349 242574 [id number] 20 BuildDirect ([id number] ACIST Hand Acist 1 53370 063782 388224 395556 5 Control Medical (48474) Systems Inc ACIST Acist 1 04749 086577 198182 068848 5 Manifold Medical (31192) Systems Inc Medline Medline 1 [id number] 204567 19380 180895 5 Cath Pack ([id number]) Bag Microtek 1 2001S 907795 32299 904781 5 Decanter Medical Inc. () EMERALD Cardinal 1 502-455 492186 573178 082946 5 Guide Wire Health (502-455) SHEATH 6FR Terumo 1 HYZ993 572901 153225 156866 40 Mcbrides (MSM410) INFLATOR Merit 1 NJ6333 915510 716276 038377 15 Merit Medical BasixCompak (AY7651) TUBING High Merit 1 [id number] 852218 98841 328345 10 Pressure Medical Extension Tubing (Carter) ([id number]) [employer] 1 40011-875423 635080 585185 977467 5 BMW 300cm Franco 1 [id number] 983417 351567 909032 5 [place] 2 Vascular J wire ([id number]) GUIDE 6FR Medtronic 1 [id number] 630573 40534 087656 1 AR 1.0 catheter (DX6FH35) SHEATH 6FR Terumo 1 RSR01 647338 32455 327178 5 Destination (RSR01) GUIDE 6FR Medtronic 1 [id number] 350791 26953 798939 1 JR 4.0 catheter ([id number]) [place] 1 [id number] 177568 03761 9915 5 OmniWire (51127) LASER ELCA Jasmina 1 110-002 363930 205408 734105 5 0.9 [facility] atherectomy (624045) catheter (110-002) EUPHORA 3.0 Medtronic 1 [id number] 843260 610995 902552 5 [id number] x 20 Balloon ([id number]) EXOSEAL 6Fr Cardinal 1 EX600 290611 034747 399134 10 (EX600) Health TUBING High Merit 1 [id number] 427878 206564 639919 5 Pressure Medical Extension (IABP) Signature Audit [place] Stage Time Signature Unsigned Intra-Procedure 10/02/2020 Olga Lidia Linder RT(R) 10:56:41 AM Intra-Procedure 10/02/2020 Miguel Ángel Jacobs RN 10:57:13 AM Intra-Procedure 10/02/2020 Pipo Carter MD 11:09:52 AM [place] [id number] [place] [address]
[~2020-10-02 08:04] MED LIST changes: +ULTRAM50 MG PO; +prostate med
[2020-10-02] MEDS ORDERED: FLOMAX0.4 MG PO (08:11)
[2020-10-02] MEDS ORDERED: PROTONIX40 MG PO (08:12)
[2020-10-02 08:36] LABS: BASOPHILS 0.9 % (0-2); EOSINOPHILS 2.4 % (0-7); HEMATOCRIT 44.6 % (42.0-54.0); HEMOGLOBIN 14.7 g/dL (13.5-17.5); LYMPHOCYTES 19.4 % (15-50); MCHC 32.9 g/dL (31.0-37.0); MCV 84.9 fL (80.0-100.0); MEAN PLATELET VOLUME 7.7 fL (7.4-10.4); MONOCYTES 7.3 % (2-11); PLATELET COUNT 235 10x3/uL (130-400); RBC 5.25 10x6/uL (4.20-6.10); RDW 14.6 % (11.5-14.5); WBC 9.2 10x3/uL (4.8-10.8)
[2020-10-02 08:51] LABS: ANION GAP 11.7 mmol/L (8-16); CALCIUM 9.3 mg/dL (8.5-10.1); CARBON DIOXIDE 23.7 mmol/L (21.0-32.0); CREATININE - SERUM 2.1 mg/dL (0.6-1.3); LDL-HDL RATIO 1.5 ratio (1.5-3.5); POTASSIUM - SERUM 4.4 mmol/L (3.5-5.1)
--- NOTE | 2020-10-02 11:22 | NUR ---
PT ARRIVED BY BED. PLACED ON MONITORS. ASSESSMENT COMPLETED. AT BEDSIDE. DR. ALBERT ROUNDED AND SPOKE WITH PT'S AND UPDATED HER ON PLAN OF CARE. PT IN SUPINE POSITION. CALL LIGHT WITHIN REACH.
--- NOTE | 2020-10-02 11:37 | NUR ---
PT RESTING COMFORTABLY. VSS. CALL LIGHT WITHIN REACH. FAMILY AT BEDSIDE. RIGHT GROIN DRESSING C/D/I. NO S/S OF HEMATOMA NOTED. SHEATH IN PLACE. RIGHT PEDAL PULSE PALPABLE. HR 69. BP 116/65. O2 SAT 97% ON 2LNC.
--- NOTE | 2020-10-02 12:05 | NUR ---
RIGHT GROIN DRESSING C/D/I. NO S/S OF HEMATOMA NOTED. RIGHT PEDAL PULSE PALPABLE. BP 128/70. HR 64 NSR. RESP 16. O2 SAT 95% ON 2LNC
--- NOTE | 2020-10-02 12:26 | NUR ---
RIGHT GROIN DRESSING C/D/I. NO S/S OF HEMATOMA NOTED. RIGHT PEDAL PULSE PALPALBLE. PT C/O BACK PAIN. ORDER RECEIVED FOR PAIN MEDICATION. WILL TREAT ORDERED. ATTEMPTED TO REPOSITION FOR COMFORT, PT STILL IN SUPINE POSITION.
--- NOTE | 2020-10-02 12:53 | NUR ---
PT RESTING MORE COMFORTABLY. HE IS SNORING. EASILY AROUSED FROM SLEEP. PAIN REASSESSED FOR BACK. HE STATES HE FEELS MUCH BETTER AND RATES IT A 9/10. RIGHT GROIN DRESSING C/D/I. NO S/S OF HEMATOMA NOTED. FAMILY AT BEDSIDE.
--- NOTE | 2020-10-02 13:05 | NUR ---
DR. FORD AND JEAN PAUL AT BEDSIDE TO PULL SHEATH.
--- NOTE | 2020-10-02 13:15 | NUR ---
SHEATH REMOVED AND PRESSURE HELD BY JEAN PAUL. DRESSING APPLIED. NO BLEEDING/HEMATOMA NOTED. CALL LIGHT WITHIN REACH. VSS AT THIS TIME. RIGHT PEDAL PULSE PALPABLE.
--- NOTE | 2020-10-02 13:30 | NUR ---
RIGHT GROIN DRESSING C/D/I. NO S/S OF HEMATOMA NOTED. RIGHT PEDAL PULSE PALPABLE. BP 128/65. HR 60. ATRIAL PACED. O2 SAT 96% ON 2LNC
--- NOTE | 2020-10-02 14:00 | NUR ---
QUARTER SIZED BLOOD NOTED ON RIGHT GROIN DRESSING. NO HEMATOMA NOTED. SLIGHT OOZING FROM SITE. WILL MONITOR FOR INCREASED BLEEDING. RIGHT PEDAL PULSE PALPABLE. DENIES NAUSEA.
--- NOTE | 2020-10-02 14:30 | NUR ---
NS HAS COMPLETED INFUSION. PT STILL HAS INTEGRILIN GTT INFUSING PER MD ORDERS. TOLERATING WELL. DENIES NAUSEA AT THIS TIME. TOLERATING SIPS OF WATER. PT STILL IN SUPINE POSITION. BP 133/70. HR ATRIAL PACED AT 60. RESP 13. O2 SAT 97% ON 2LNC
--- NOTE | 2020-10-02 15:31 | NUR ---
RIGHT GROIN DRESSING SATURATED WITH BLOOD. NO HEMATOMA NOTED. DRESSING REMOVED AND PRESSURE HELD X 5 MINUTES. NO BLEEDING NOTED. NEW DRESSING APPLIED. PT GIVEN ROOM 2301 IN ICU BY SANTY MUNROE RN. WILL WAIT UNTIL 1600 TO MOVE PT PER REQUEST.
--- NOTE | 2020-10-02 19:07 | NUR ---
PT ARRIVED TO UNIT VIA BED, HOOKED TO MONITORS, VSS, ALERT AND ORIENTED, CALL LIGHT IN REACH
[2020-10-03] VITALS (7 sets, daily range): BP systolic 135–145; BP diastolic 80–91
[2020-10-03] MEDS ORDERED: PLAVIX75 MG GT (09:04)
== END 2020-10-03 10:35 | disposition home or self-care (01) ==
LOC: D.CATH 08:04 → D.ICU 15:38 → OBSVTIME 15:39 → D.ICU 15:39 → D.CATH 15:39 → D.ICU 10-03 10:34
PROVIDERS: ADMIT Internal Medicine Cardiovascular Disease; ATTEND Internal Medicine Cardiovascular Disease
DX: I25.119 Atherosclerotic heart disease of native coronary artery with unspecified angina pectoris (principal); I10 Essential (primary) hypertension